=== PATIENT | female | born 1950 | race Caucasian/White ===

== ENCOUNTER → 2016-09-21 | Outpatient (CLI) | payer BC ==
[~2016-09-21] MED LIST: ACET-24 PO; ANTIBIOTIC; ASPEC325 PO; ASPI81TA28 PO; ATOR-22 PO; CHOL1TAB12 PO; CHOL1TAB76 PO; CYAN100020 PO; FRRG PO; MORP-157 PO; MULTTAB58 PO; NAPR-1169 PO; OMEG10002 PO; RXC5 PO; TRIATAB3 PO; [UNRECOGNIZED DRUG - OTHER]
[2016-09-21 13:06] LABS: ALT/SGPT 29 U/L (12-78); BLOOD UREA NITROGEN 13 mg/dl (7-18); BUN/CREATININE RATIO 19.8 (10-20); CALCIUM 9.1 mg/dl (8.5-10.1); CARBON DIOXIDE 29 mmol/L (21-32); CHLORIDE 104 mmol/L (98-107); CHOLESTEROL 141 mg/dl (0-200); CREATININE 0.66 mg/dl (0.60-1.20); GLUCOSE 109 mg/dl (70-99); SODIUM 142 mmol/L (136-145)
[2016-09-21 13:12] LABS: ALB/GLOB RATIO 1.2 (0.9-2); ALKALINE PHOSPHATASE 83 U/L (45-117); AST/SGOT 15 U/L (15-37); CHOLESTEROL/HDL RATIO 2.8; HDL CHOLESTEROL 51 mg/dl; LDL CHOLESTEROL CALCULATED 59 mg/dl; TRIGLYCERIDES 156 mg/dl (0-150); VERY LOW DENSITY LIPOPROT CALC 31 mg/dl
[2016-09-21 13:32] LABS: ESTIMATED AVERAGE GLUCOSE 123 mg/dl; HA1C FLAG Normal (Normal)
== END | disposition home or self-care (01) ==
LOC: C.LABBFT 08:51
PROVIDERS: ATTEND Family Medicine
DX: I10 Essential (primary) hypertension (principal); E78.2 Mixed hyperlipidemia; R73.01 Impaired fasting glucose

== ENCOUNTER 2017-01-18 06:29 | Inpatient (IN) | payer OTHER ==
[2016-12-13 15:08] VITALS: BMI 47.0
--- NOTE | 2016-12-13 15:49 | PAT Medication Instructions ---
Service Date December 13, 2016. Current Home Medication List Aspirin (Aspirin Ec), 81 MG PO QAM Atorvastatin (Lipitor), 20 MG PO QPM Cholecalciferol (D 1999), 1 TAB PO QAM Cyanocobalamin (Vitamin B12), 3,000 MCG PO QAM Multiple Vitamin (Multivitamin), 1 TAB PO QAM Naproxen (Naprosyn), 500 MG PO QAM [place]-3 Fatty Acids (Fish Oil), 3,000 MG PO QAM Triamterene/Hctz (Triamterene/Hctz 37.5-25MG), 1 TAB PO QAM [[antibiotic ] Medication Instructions For Your Scheduled Surgery Antibiotic (takes prior to dental procedures since having knee replacement) - Hold the following medications 10 days prior to surgery: [place]-3 Fatty Acids (Fish Oil), 3,000 MG PO QAM Aspirin (Aspirin Ec), 81 MG PO QAM Naproxen (Naprosyn), 500 MG PO QAM - Hold the following medications the morning of surgery: Triamterene/Hctz (Triamterene/Hctz 37.5-25MG), 1 TAB PO QAM Cholecalciferol (D 1999), 1 TAB PO QAM Cyanocobalamin (Vitamin B12), 3,000 MCG PO QAM Multiple Vitamin (Multivitamin), 1 TAB PO QAM - Take the following medications as scheduled the night before surgery: Atorvastatin (Lipitor), 20 MG PO QPM If you have any questions please call us at [phone] or [phone] ( [place]) or [phone]
[2016-12-13 16:32] LABS: BASO % 0.2 %; BASO ABS # 0.01 K/uL (0-0.2); COMPLETE YES; EOS % 3.3 %; HEMATOCRIT 38.9 % (37-47); IG% 0.2 %; LYMPH % 22.4 %; LYMPH ABS # 0.96 K/uL (1.2-3.4); MEAN CELL VOLUME 85.5 fL (80-100); MEAN CORPUSCULAR HEMOGLOBIN 27.7 pg (25-34); MEAN CORPUSCULAR HGB CONC 32.4 g/dl (32-36); MEAN PLATELET VOLUME 12.1 fL (7.4-10.4); NEUT % 62.9 %; PLATELET COUNT 180 K/uL (130-400); RED BLOOD COUNT 4.55 M/uL (4.2-5.4); WHITE BLOOD COUNT 4.29 K/uL (4.8-10.8)
[2016-12-13 16:34] LABS: PARTIAL THROMBOPLASTIN RATIO 1.1; PROTHROMBIN TIME (PATIENT) 10.5 SECONDS (9.0-12.0)
[2016-12-13 16:42] LABS: C-REACTIVE PROTEIN 0.52 mg/dl (0-0.29); CREATININE 0.65 mg/dl (0.60-1.20); POTASSIUM 4.1 mmol/L (3.5-5.1)
--- NOTE | 2016-12-13 16:54 | DIAGNOSTIC IMAGING REPORT ---
CHEST 2 VIEWS ROUTINE CLINICAL HISTORY: PAT preoperative evaluation COMPARISON STUDY: 08/27/2014 FINDINGS: Mild stable cardia megaly. Lungs are clear. Mild chronic elevation right hemidiaphragm. Costophrenic angles are sharp. IMPRESSION: Mild stable cardiomegaly. Otherwise negative study Electronically signed by: Silas Mcghee M.D. 12/13/2016 4:53 PM Dictated Date/Time: 12/13/2016 4:52 PM
[2016-12-13 16:57] LABS: CALCIUM 10.5 mg/dl (8.5-10.1)
--- NOTE | 2017-01-13 19:04 | HISTORY & PHYSICAL EXAMINATION ---
DATE OF ADMISSION: 01/18/2017 CHIEF COMPLAINT: Right knee pain, discomfort and stiffness. HISTORY OF PRESENT ILLNESS: This 65-year-old female who is well known to me from a previous left knee replacement done in September 2014. She has done well on this side. Over the years she has developed increased pain and discomfort in her right knee. She has been through extensive conservative treatment including injections which provided very temporary relief. The last shot only helped her for about a day and a half. Pain has become more disabling. Hurts her all the time. The more she walks, the more it hurts. She would like to proceed with surgical treatment. Of note, the patient does report a NICKEL ALLERGY and we used the Huff & Nephew knee as a result. PAST MEDICAL HISTORY: Include: 1. Mitral valve prolapse. 2. Hypertension. 3. Elevated cholesterol. 4. Obesity with a BMI of 46.8. 5. Arthritis. PAST SURGICAL HISTORY: Include: 1. Left knee replacement done on 09/27/2014. 2. Right knee scope. 3. Right foot bunionectomy. 4. [place] teeth surgery. ALLERGIES: NICKEL. CURRENT MEDICINES: Include 1. Naproxen 500 mg a day. 2. Atorvastatin 20 mg. 3. Maxzide. 4. Enteric-coated aspirin 81 mg a day. 5. [place] fish oil. 4. Vitamin D3. 5. Vitamin B12. SOCIAL HISTORY: A 65-year-old female. Does not smoke. FAMILY HISTORY: Noncontributory. REVIEW OF SYSTEMS: Negative for diabetes, neurologic problems, vascular problems, bleeding disorders. Does report this NICKEL ALLERGY. PHYSICAL EXAMINATION: GENERAL: Reveals a pleasant, middle-aged female. Looks to be in pretty good health. HEENT: Benign. NECK: Supple. No lymphadenopathy. LUNGS: Clear to auscultation. HEART: Regular rate and rhythm. ABDOMEN: Soft, nontender, nondistended. EXTREMITIES: Grossly neurovascularly intact except as follows: Examination of the right knee reveals the patient ambulates independently. She has got fairly neutral alignment to her knee. Slight flexion contracture about 10 degrees. She can flex to about 120. No instability. She is tender over the medial and lateral joint lines. X-RAYS: X-rays of the right knee reviewed. It shows advanced right knee tricompartmental DJD. She has got pretty significant osteophytes, particularly posteriorly. She still has some joint space remaining, but has tricompartment disease. A little bit of tibial femoral subluxation. ASSESSMENT: A 65-year-old female 2 years out from left knee replacement, doing well with advanced right knee degenerative joint disease. She still does have some cartilage space remaining, but pretty significant osteophyte formation, degenerative changes in all 3 compartments. She has failed conservative treatment and would like to proceed with right knee replacement. She does have a NICKEL ALLERGY, so we will use the Huff & Nephew zirconium knee. PLAN: We are going to take her to the operating room and do a total knee replacement. We will use a Huff & Nephew zirconium total knee arthroplasty. The risks and benefits for this procedure were explained to the patient including but not limited to DVT, PE, , infection, neurological injury, neurovascular injury, bleeding problem, pain, limited range of motion, incomplete relief of symptoms, etc. The patient understands and desires to proceed. Informed consent was obtained. We did talk about holding the naproxen 10 days preop. She is hoping to be discharged to home. She will likely use home health of some sort. We will use a Huff & Nephew knee. I will see her back 2 weeks postop.
[~2017-01-18] VITALS: Ht 162.6 cm; Wt 123.8 kg
[2017-01-18] VITALS (9 sets, daily range): BP systolic 120–156; BP diastolic 69–86; PULSE 55–92; TEMP 36.6–36.8; O2SAT 92–100; Ht 162.6 cm; Wt 123.8 kg
[~2017-01-18 06:29] MED LIST changes: -ACET-24 PO; +ACETAMINOPHEN 500 MG TAB PO SCH; -ASPEC325 PO; +BUPIVACAINE LIPOSOME 266 MG, BUPIVACAINE/EPINEPHRINE INJ 50 ML, SODIUM CHLORIDE 0.9% PF... INFIL SCH; +CEFAZOLIN 3000 MG/65 ML D5W 65 ML IV SCH; -CHOL1TAB12 PO; +FAMOTIDINE 20 MG TAB PO SCH; -FRRG PO; +GABAPENTIN 300 MG CAP PO SCH; +LACTATED RINGER'S 1000ML IV SCH; +LACTATED RINGER'S 500 ML IV SCH; +METOCLOPRAMIDE HCL 10 MG TAB PO SCH; -MORP-157 PO; -RXC5 PO; +SCOPOLAMINE 1.5 MG TDSY TD SCH; +TRANEXAMIC ACID INJ 1,000 MG in SODIUM CHLORIDE 0.9% 100ML 100 ML IV SCH; -[UNRECOGNIZED DRUG - OTHER]
[2017-01-18] MEDS ORDERED: BUPIVACAINE 0.5 % 5 MG/1 ML PF 10ML VIAL ONE (06:37)
[2017-01-18] MEDS ORDERED: BUPIVACAINE 0.25% 30 ML VIAL ONE (06:38)
--- NOTE | 2017-01-18 06:49 | History & Physical Bridge Note ---
H&P Re-Evaluation Bridge Note: I have examined the patient, reviewed the History & Physical and in the interval since the performance of the History & Physical I have noted the following changes of clinical significance: No changes noted
[2017-01-18] MEDS ORDERED: MIDAZOLAM HCL 1 MG/ML 2ML VIAL ONE ×2 (07:32)
[2017-01-18] MEDS ORDERED: BACITRACIN 50000 UNIT VIAL ONE (09:32)
[2017-01-18] MEDS ORDERED: BUPIVACAINE/EPINEPHRINE 0.25% 1:200,000 30 ML VIAL ONE (09:32)
[2017-01-18] MEDS ORDERED: SODIUM CHLORIDE 0.9% PF 50 ML VIAL ONE (09:32)
[2017-01-18] MEDS ORDERED: BUPIVACAINE LIPOSOME 1/3% 266 MG/20 ML VIAL INFIL ONE (09:33)
[2017-01-18] MEDS ORDERED: PROPOFOL IV EMULSION 10 MG/ML 20 ML VIAL IV ONE (10:02)
[2017-01-18] MEDS ORDERED: PHENYLEPHRINE 100MCG/ML 5ML SYR IV PRN (10:45)
[2017-01-18] MEDS ORDERED: ONDANSETRON INJ 2 MG/ML 2 ML VIAL IV PRN ×2 (10:45→11:45)
[2017-01-18] MEDS ORDERED: ATROPINE SULFATE 0.1 MG/ML 5ML SYR IV PRN (10:45)
[2017-01-18] MEDS ORDERED: KETOROLAC TROMETHAMINE 30 MG/ML VIAL IV. PRN (10:45)
[2017-01-18] MEDS ORDERED: HYDROmorphone INJ 2 MG/ML SYR/VIAL IV PRN (10:45)
[2017-01-18] MEDS ORDERED: EpHEDrine SULFATE INJ 50 MG/ML AMP IV PRN (10:45)
--- NOTE | 2017-01-18 11:36 | [facility] Post Operative Brief Note ---
Immediate Operative Summary Operative Date Jan 18, 2017. Pre-Operative Diagnosis Right knee degenerative joint disease Post-Operative Diagnosis Right knee degenerative joint disease Procedure(s) Performed Right total knee arthroplasty Surgeon Dr. Tad Hall Falafel Cart Cook Surgeon(s) Kosta Montana PA-C Estimated Blood Loss 50ML Findings Right Knee DJD Fluids (cc crystalloids) 1600 cc Specimens A. Right knee bone and tissue Drains None Anesthesia Spinal Complication(s) None Disposition Recovery Room / PACU
[2017-01-18] MEDS ORDERED: METOCLOPRAMIDE HCL INJ 5 MG/ML 2 ML VIAL IV PRN (11:45)
[2017-01-18] MEDS ORDERED: MAGNESIUM HYDROXIDE SUSP 30 ML UDC PO PRN (11:45)
[2017-01-18] MEDS ORDERED: BISACODYL 10 MG SUPP PR PRN (11:45)
[2017-01-18] MEDS ORDERED: ALUMINUM/MAGNESIUM/SIMETH (MAALOX MAX) 30 ML UDC PO PRN (11:45)
[2017-01-18] MEDS ORDERED: ZOLPIDEM TARTRATE 5 MG TAB PO PRN (11:45)
[2017-01-18] MEDS ORDERED: HYDROmorphone INJ 1 MG/ML SYR IV PRN (11:45)
[2017-01-18] MEDS ORDERED: SILVER SULFADIAZINE 1% CR 50 GM JAR EXT PRN (11:45)
--- NOTE | 2017-01-18 12:20 | OPERATIVE REPORT ---
DATE OF OPERATION: 01/18/2017 PREOPERATIVE DIAGNOSIS: Right knee degenerative joint disease. POSTOPERATIVE DIAGNOSIS: Same. PROCEDURE PERFORMED: Right cemented posterior stabilized total knee arthroplasty. SURGEON: Tad Hall M.D. NUCLEAR REACTOR ENGINEER: Kosta Montana PA-C. COMPLICATIONS: None. ESTIMATED BLOOD LOSS: 50 mL. FLUID REPLACEMENT: 1600 mL crystalloid fluid replacement. ANESTHESIA: Spinal with adductor canal block. DRAINS: None. SPECIMENS: Right knee sent for pathology. TOURNIQUET TIME: 62 minutes at 300 mmHg. OPERATIVE INDICATIONS: The patient is a 66-year-old female who has had a long history of knee problems. She underwent a left knee replacement about 2 years ago and has done well from this. Over the years she developed increased pain and discomfort in her right knee. She has been through extensive conservative treatment. The last shot helped her for about a day or two. X-rays revealed advanced DJD. The patient has apparent nickel allergy and we elected to use the Huff & Nephew Journey II zirconium total knee arthroplasty as a result. She elected to proceed with total knee arthroplasty. OPERATIVE FINDINGS: Operative findings revealed advanced right knee DJD. She had grade 4 [id number] disease in all 3 compartments, most severe in the medial and patellofemoral compartments. She had more focal changes in the lateral side. Moderate size joint effusion. Very stiff knee with about a 10 degree flexion contracture and flexion only to about 100 degrees. OPERATIVE IMPLANTS: Operative implants consisted of: 1. Huff & Nephew Journey II, size 5 posterior stabilized zirconium femoral component. 2. Huff & Nephew Journey II, size 3 tibial tray. 3. A 12 mm posterior stabilized polyethylene insert. 4. A 32 x 9 all poly patella. OPERATIVE PROCEDURE: The patient taken to the operating room, identified and placed on the operating table in supine position. All contact areas were appropriately padded. IV antibiotics were provided by anesthesia team. A spinal anesthetic and adductor canal block had been provided in the holding area. A Nelson catheter was placed in sterile fashion. Right thigh tourniquet was then placed. The right lower extremity was then prepped and draped in usual sterile fashion. The right leg was elevated and exsanguinated with Esmarch and tourniquet was placed at 300 mmHg. An anterior approach to the right knee was then performed through a longitudinal incision centered over the patella. Sharp dissection was carried down through the subcutaneous tissues down to the level of the extensor mechanism. A medial parapatellar arthrotomy incision was made. Some subperiosteal dissection was carried out medially. The fat pad was resected from beneath the patellar tendon. Lateral patellofemoral ligament was released. The patella was everted and knee was flexed. The osteophytes were taken off the distal femur. The ACL and PCL were then released from the distal femur and the tibia subluxated anteriorly. The external tibial alignment jig was then placed in the anterior face of the tibia and adjusted 8 mm medially. Proximal tibial cut was made to remove about 2-3 mm of bone from the most deficient aspect of the medial tibial plateau. I did take a little bit larger cut than usual due to her tight knee and flexion contracture. The tibia was then sized to a size 3. Attention was then drawn to the femur. The distal femur was entered with a sharp drill bit. Intramedullary canal was suctioned. A right 5 degree valgus cutting guide was placed. Distal femoral cutting block was pinned in place. Distal femoral cut was made to take an additional 2 mm of bone off the distal femur. The femur was then sized to a size 5. We did downsize this almost an entire size. The AP cutting block was pinned parallel to the epicondylar axis, which was 4 degrees of external rotation. The anterior cut, anterior chamfer, posterior cut, posterior chamfer cuts were made. Box cutting guide was placed and adjusted slightly lateral and the box cut was made. The knee was flexed. The AP cutting block was pinned parallel to the epicondylar axis. The anterior cut, anterior cord cut, posterior cut, posterior chamfer cut and anterior chamfer cuts were then made. The knee was then flexed. The remnants of the medial and lateral menisci were excised. The osteophytes were taken off the posterior aspect of the femur. I then did place the femoral component. The box cutting guide was placed and the box cut was made. The trochlear component was placed. The attention then drawn back to the tibia. The tibial tray was pinned in maximum external rotation. The punch was used to create defect in proximal tibia for the tibial tray. The knee was then trialed and the 12 mm insert fit most appropriately. Attention was then drawn to the patella. The patella was cleaned of all soft tissues. Patella thickness measured 22 mm and was cut down to 13. It was sized to a size 32 patella. Lug holes were drilled for a 32 patella. The lateral osteophyte was removed. Patella button was placed. Knee was taken through range of motion and patella tracked nicely with no thumbs test. Attention was then drawn toward placement of the permanent components. All trial components were removed. A bone plug was placed in the distal femur to limit blood loss. A double batch of [place] G cement was mixed. A right size 5 stabilized femoral component, size 3 tibial tray, a 12 mm posterior stabilized polyethylene insert, and a 32 x 9 all poly patella were then cemented in place. Knee was brought out into full extension until cement hardened. A final cement check was then performed. Pericapsular tissues were injected with a total of 100 mL of a combination of 20 mL of Exparel, 30 mL of normal saline, 50 mL of 0.25% Marcaine with epinephrine. The patient did receive 1 gram of tranexamic acid. The tourniquet was then let down for final tourniquet time of 62 minutes. Hemostasis was assured with use of electrocautery. The extensor mechanism was then closed with a combination of #1 PDS suture and #1 Vicryl suture in a [id number] fashion. Extensor mechanism was checked and found to be intact. The subcutaneous tissues were then closed with 2-0 Dexon suture in buried interrupted fashion. Skin was closed skin whitney. Leg was then cleaned and dried and a sterile dressing of Xeroform, 4 x 4, sterile cast padding and Jimmy bandage were applied. The patient then transferred to the recovery room in stable condition. The patient tolerated the procedure well with no complications. All needle and sponge counts were correct at the end of the operation. I attest to the content of the Intraoperative Record and any orders documented therein. Any exceptions are noted below. MARCELLUSD
--- NOTE | 2017-01-18 12:21 | DIAGNOSTIC IMAGING REPORT ---
RIGHT KNEE 1 OR 2 VIEWS ROUTINE CLINICAL HISTORY: AP/LATERAL IN PACU RIGHT KNEE Right joint replacement COMPARISON: None. DISCUSSION: Total right knee prosthetic. Good contact between prosthesis and underlying bone. Expected soft tissue postoperative change. IMPRESSION: Anatomic alignment status post total right knee replacement. Electronically signed by: Silas Mcghee M.D. 01/18/2017 12:20 PM Dictated Date/Time: 01/18/2017 12:19 PM
--- NOTE | 2017-01-18 12:53 | Anesthesiology Progress Note ---
Anesthesia Post Op Note Date & Time Jan 18, 2017 at 12:54 Vital Signs Pain Intensity: 0.0 Vital Signs Past 12 Hours Date Time Temp Pulse Resp B/P (MAP) Pulse Ox O2 Delivery O2 Flow Rate FiO2 01/18/17 12:46 98 Nasal Cannula 2.0 01/18/17 12:43 36.7 63 16 138/79 (98) 98 2.0 01/18/17 12:32 62 17 92 01/18/17 12:32 63 17 01/18/17 12:31 140/69 01/18/17 12:27 61 21 97 01/18/17 12:27 61 21 01/18/17 12:26 127/62 01/18/17 12:22 61 20 01/18/17 12:22 60 20 94 01/18/17 12:21 144/63 01/18/17 12:20 36.5 61 20 144/63 (74) 95 Nasal Cannula 2 01/18/17 12:17 62 22 01/18/17 12:17 62 22 96 01/18/17 12:16 137/66 01/18/17 12:12 60 20 01/18/17 12:12 59 20 95 01/18/17 12:11 124/65 01/18/17 12:07 62 21 95 01/18/17 12:07 62 21 01/18/17 12:06 138/65 01/18/17 12:02 64 23 01/18/17 12:02 63 23 95 01/18/17 12:01 142/58 01/18/17 11:57 59 16 97 01/18/17 11:57 60 16 01/18/17 11:56 132/60 01/18/17 11:52 63 20 01/18/17 11:52 63 20 98 01/18/17 11:51 138/52 01/18/17 11:47 69 18 99 01/18/17 11:47 68 18 01/18/17 11:46 145/58 01/18/17 11:43 124/64 01/18/17 11:42 36.8 68 18 124/64 99 Nasal Cannula 2 01/18/17 07:07 36.7 78 18 156/78 94 Room Air Notes Mental Status: alert / awake / arousable, participated in evaluation Pt Amnestic to Procedure: Yes Nausea / Vomiting: adequately controlled Pain: adequately controlled Airway Patency, RR, SpO2: stable & adequate BP & HR: stable & adequate Hydration State: stable & adequate Anesthetic Complications: no major complications apparent
[2017-01-18] MEDS: D5W AND 1/2NSS + 20MEQ KCL 1,000 ML IV SCH ×2 (13:24→21:35)
[2017-01-18] MEDS: ACETAMINOPHEN 500 MG TAB PO SCH ×2 (13:25→21:46)
[2017-01-18] MEDS: KETOROLAC TROMETHAMINE 30 MG/ML VIAL IV. SCH ×2 (13:26→19:54)
[2017-01-18] MEDS: OXYCODONE HCL IR 5 MG TAB (IMMEDIATE RELEASE) PO PRN ×2 (15:11→19:52)
[2017-01-18] MEDS: CHECK SCOPOLAMINE PATCH PLACEMENT SCH ×2 (15:11→23:08)
[2017-01-18] MEDS: FERROUS GLUCONATE 324 MG TAB PO SCH (17:45)
[2017-01-18] MEDS ORDERED: TRANEXAMIC ACID INJ 1,000 MG in SODIUM CHLORIDE 0.9% 100ML 100 ML IV ONE (18:00)
[2017-01-18] MEDS: CEFAZOLIN IV 2,000 MG in DEXTROSE 5% 50ML 50 ML IV SCH (18:16)
--- NOTE | 2017-01-18 18:22 | PROGRESS NOTE ---
DATE: 01/18/2017 SUBJECTIVE: A 66-year-old white female, postop from a right total knee replacement. She is doing well. Pain is controlled. Denies any chest pain or shortness of breath. Not feeling dizzy or lightheaded. OBJECTIVE: VITAL SIGNS: Temperature 36.8. Vital signs stable. PHYSICAL EXAMINATION: GENERAL: Physical examination reveals she is a pleasant, middle-aged female. She is lying in bed, looks pretty comfortable. EXTREMITIES: Examination of the right leg reveals the leg to be well aligned. She can dorsiflex and plantarflex her foot appropriately. She is neurologically intact. X-RAYS: X-rays of the right knee from recovery room were reviewed. It shows a right cemented posterior stabilized total knee arthroplasty. Components look to be in good position. No signs of problems. It is a little bit of rotated film. ASSESSMENT: A 66-year-old white female, postop from a right knee replacement, doing well. Pain is controlled. She is neurologically intact. PLAN: 1. DVT prophylaxis including thigh-high TEDs, SCDs and aspirin twice a day. 2. PT/OT. Weightbearing as tolerated. Right total knee protocol. 3. Pain control, doing pretty well with current pain regimen. 4. IV antibiotics x24 hours. 5. Disposition. Plan will be to discharge her to home. I believe she is going to do home health versus outpatient therapy.
[2017-01-18] MEDS: DOCUSATE SODIUM 100 MG CAP PO SCH (21:34)
[2017-01-18] MEDS: TAPENTADOL ER 50 MG TABCR PO SCH (21:34)
[2017-01-18] MEDS: ATORVASTATIN 20 MG TAB PO SCH (21:34)
[2017-01-18] MEDS: ASPIRIN 325 MG ECTAB PO SCH (21:34)
[2017-01-18] MEDS: SENNA 8.6 MG TAB PO SCH (21:46)
[2017-01-19] MEDS: CEFAZOLIN IV 2,000 MG in DEXTROSE 5% 50ML 50 ML IV SCH (02:00)
[2017-01-19] MEDS: KETOROLAC TROMETHAMINE 30 MG/ML VIAL IV. SCH ×4 (02:00→19:30)
[2017-01-19 03:18] VITALS: BP 134/84; PULSE 65; TEMP 36.6; O2SAT 96
[2017-01-19 05:47] LABS: HEMATOCRIT 32.9 % (37-47); MEAN CELL VOLUME 83.9 fL (80-100); MEAN CORPUSCULAR HEMOGLOBIN 26.5 pg (25-34); MEAN CORPUSCULAR HGB CONC 31.6 g/dl (32-36); MEAN PLATELET VOLUME 11.4 fL (7.4-10.4); PLATELET COUNT 155 K/uL (130-400); RED BLOOD COUNT 3.92 M/uL (4.2-5.4); WHITE BLOOD COUNT 4.91 K/uL (4.8-10.8)
[2017-01-19] MEDS: D5W AND 1/2NSS + 20MEQ KCL 1,000 ML IV SCH (05:54)
[2017-01-19] MEDS: ACETAMINOPHEN 500 MG TAB PO SCH ×3 (05:54→21:49)
[2017-01-19 06:19] LABS: BUN/CREATININE RATIO 15.8 (10-20); CALCIUM 8.1 mg/dl (8.5-10.1); CREATININE 0.69 mg/dl (0.60-1.20); POTASSIUM 4.3 mmol/L (3.5-5.1)
[2017-01-19] MEDS: CHECK SCOPOLAMINE PATCH PLACEMENT SCH ×2 (07:31→15:11)
[2017-01-19] MEDS: FERROUS GLUCONATE 324 MG TAB PO SCH ×3 (07:31→18:25)
[2017-01-19 07:39] VITALS: BP 140/78; PULSE 64; TEMP 36.7; O2SAT 93
[2017-01-19 07:53] VITALS: O2SAT 93
--- NOTE | 2017-01-19 08:08 | Anesthesiology Progress Note ---
Anesthesia Post Op Note Date & Time Jan 19, 2017 at 08:07 Vital Signs Pain Intensity: 6.0 Vital Signs Past 12 Hours Date Time Temp Pulse Resp B/P (MAP) Pulse Ox O2 Delivery O2 Flow Rate FiO2 01/19/17 07:53 93 Room Air 01/19/17 07:39 36.7 64 16 140/78 (98) 93 Room Air 01/19/17 07:30 Room Air 01/19/17 03:18 36.6 65 18 134/84 (101) 96 Room Air 01/18/17 23:09 36.7 77 19 120/71 (87) 96 Room Air Notes Mental Status: alert / awake / arousable, participated in evaluation Pt Amnestic to Procedure: Yes Nausea / Vomiting: adequately controlled Pain: adequately controlled Airway Patency, RR, SpO2: stable & adequate BP & HR: stable & adequate Hydration State: stable & adequate Neuraxial Anesthesia: was administered, sensory block resolved Anesthetic Complications: no major complications apparent
[2017-01-19] MEDS ORDERED: MULTIVITAMIN TAB PO SCH (09:00)
[2017-01-19] MEDS: TAPENTADOL ER 50 MG TABCR PO SCH ×2 (09:03→20:32)
[2017-01-19] MEDS: PANTOprazole SOD 40 MG TAB PO SCH (09:04)
[2017-01-19] MEDS: CHOLECALCIFEROL 1000 INTER.UNIT TAB PO SCH (09:04)
[2017-01-19] MEDS: DOCUSATE SODIUM 100 MG CAP PO SCH ×2 (09:04→20:31)
[2017-01-19] MEDS: MULTIVITAMIN TAB PO SCH (09:04)
[2017-01-19] MEDS: ASPIRIN 325 MG ECTAB PO SCH ×2 (09:04→20:31)
[2017-01-19] MEDS: TRIAMTERENE/HCTZ 37.5/25MG TAB PO SCH (09:04)
[2017-01-19] MEDS: CYANOCOBALAMIN 500 MCG TAB (VIT B-12) PO SCH (09:05)
[2017-01-19 11:53] VITALS: BP 138/82; PULSE 62; TEMP 36.9; O2SAT 98
[2017-01-19] MEDS: OXYCODONE HCL IR 5 MG TAB (IMMEDIATE RELEASE) PO PRN (11:58)
[2017-01-19] MEDS ORDERED: FRRG PO (12:00)
[2017-01-19] MEDS ORDERED: RXC5 PO (12:00)
[2017-01-19] MEDS ORDERED: MORP-157 PO (12:00)
[2017-01-19] MEDS ORDERED: ACET-24 PO (12:00)
[2017-01-19] MEDS ORDERED: ASPEC325 PO (12:00)
--- NOTE | 2017-01-19 12:01 | Discharge Instructions ---
Discharge Instructions Date of Service Jan 19, 2017. Admission Reason for Admission: Right Knee Degenerative Joint Disease Discharge Discharge Diagnosis / Problem: Right Knee Replacement Discharge Goals Goal(s): Decrease discomfort, Improve function, Increase independence, Improve disease control, Therapeutic intervention Activity Recommendations Activity Limitations: per Instructions/Follow-up section Weightbearing Status: Right weightbearing . Instructions / Follow-Up Instructions / Follow-Up ACTIVITY RECOMMENDATIONS: Physical Therapy: * You will go to physical therapy three times each week for four to six weeks after your surgery in order to regain your knee range of motion and to retrain your knee to work properly. * It is just as important to make sure you are getting your knee perfectly straight as it is to regain your knee bend. * Taking a pain pill an hour before therapy can help you have a more productive and comfortable therapy session. Home Exercise: * You were shown a series of exercises (heel props, heel slides, etc.) in the hospital. Do these exercises three to four times each day including the exercises you were shown in physical therapy. Walking: * Get up and walk several times each day. For the first four weeks, try not to stand or walk for more than one hour at a time. If you do stand or walk for more than one hour, you will not hurt anything, but your knee and leg will likely swell. * As you feel comfortable, you may change from the walker or crutches to a cane and then to independent walking. MEDICATIONS: New Medicine: * You will likely be taking one or more of these medications: 1. MS Contin - A long-acting pain medication. Take 1 tablet twice a day for the first ten days to decrease your baseline level of pain. 2. Oxycodone - A quick and shorter-acting pain medication. Take one to two tablets every four to six hours to lessen your pain. 3. Iron Sulfate - Take three times each day for the month after surgery to help you replace the blood lost during surgery. 4. Aspirin - Thins your blood to lessen the chance of forming a blood clot. * The most common side effects of pain medicine and iron are nausea and constipation. If nausea or constipation is too much of a problem or if you have any questions about your new medicines or doses, call [facility] at . We will try to help you manage these issues. VERY IMPORTANT TO READ AND REVIEW" Pain: * The immediate post-operative period after knee replacement surgery is often quite painful. * You are given a prescription for pain medicine. You should take it, as directed, when you need it, especially before physical therapy and before going to bed. Pain that interferes with sleep is very common and can last several months. * You will likely need pain medicine for the first four to six weeks. It will not stop all of the pain. The pain will lessen and as you feel better, you may change to milder pain medicine such as Tylenol. * The most common side effects of pain medicine are nausea and constipation, so don't take more than you need. SPECIAL CARE INSTRUCTIONS: TEDs/Elastic Stockings: * The white elastic stockings help limit swelling and prevent blood clots from forming in your legs. The more you wear them, the more they work. * Wear them for six weeks after knee replacement surgery and four weeks after partial knee replacement. Prevention of Infection: * Take antibiotics one hour before any dental cleaning, dental work, urological procedure, gastrointestinal procedure or any invasive surgery in order to prevent your new joint from getting infected. * You may get the antibiotics from the doctor performing the procedure or you may call our office at before and we will call in a prescription to the pharmacy of your choice. Things to Watch For: * Drainage from the incision site that occurs more than one week after your surgery. * Severely increased knee/leg pain or swelling. * Increased redness at the incision site. * Fever above 102 degrees Fahrenheit. * Unusual chest pain or shortness of breath. * Unusual pain or burning with urination. Call [facility] at with any of the above problems or if you have any questions about your medicines or recovery. FOLLOW UP VISIT: Make an appointment to see your doctor for approximately two weeks after surgery for a progress check and staple removal by calling the office at . Current Hospital Diet Patient's current hospital diet: Regular Diet Discharge Diet Recommended Diet: Regular Diet Procedures Procedures Performed: Right total knee arthroplasty Pending Studies Studies pending at discharge: no Medical Emergencies . Who to Call and When: Medical Emergencies: If at any time you feel your situation is an emergency, please call 201 immediately. . Non-Emergent Contact Non-Emergency issues call your: Surgeon . "Provider Documentation" section prepared by Tad Hall. . VTE Core Measure Inpt VTE Proph given/why not?: Other Anticoagulation, T.E.D. Stockings, SCD's
[2017-01-19 15:34] VITALS: BP 152/84; PULSE 70; TEMP 37; O2SAT 92
[2017-01-19] MEDS: SENNA 8.6 MG TAB PO SCH (20:31)
[2017-01-19] MEDS: ATORVASTATIN 20 MG TAB PO SCH (20:31)
[2017-01-19 23:15] VITALS: BP 137/79; PULSE 73; TEMP 36.9; O2SAT 92
[2017-01-20] MEDS: CHECK SCOPOLAMINE PATCH PLACEMENT SCH (00:21)
[2017-01-20] MEDS: OXYCODONE HCL IR 5 MG TAB (IMMEDIATE RELEASE) PO PRN ×2 (00:25→05:48)
[2017-01-20] MEDS: KETOROLAC TROMETHAMINE 30 MG/ML VIAL IV. SCH ×2 (02:21→08:09)
[2017-01-20] MEDS: ACETAMINOPHEN 500 MG TAB PO SCH (05:48)
[2017-01-20 07:33] VITALS: O2SAT 92
--- NOTE | 2017-01-20 07:47 | PROGRESS NOTE ---
DATE: 01/20/2017 DATE: 01/20/2017. SUBJECTIVE: A 66-year-old white female postop day 2 from right knee replacement. She is doing better today. Pain has improved. The pain medicine is doing pretty well. No chest pain or shortness of breath. Not feeling dizzy or lightheaded. OBJECTIVE: VITAL SIGNS: Temperature is 36.9. Vital signs stable. PHYSICAL EXAMINATION: GENERAL: Reveals a healthy pleasant, middle-aged female. She is lying in bed, looks pretty comfortable. EXTREMITIES: Examination of the right leg reveals the leg to be well aligned. Dressing is clean, dry and intact. No significant drainage. She can dorsiflex and plantarflex her foot appropriately. She is neurologically intact. ASSESSMENT: A 66-year-old white female postop day 2 from right knee replacement, doing well. Pain is controlled. PLAN: 1. DVT prophylaxis including thigh-high TEDs, SCDs, and aspirin twice a day. 2. PT/OT, weightbear as tolerated. Right total knee protocol. 3. Pain control. Doing pretty well with current pain regimen. 4. Disposition. Plan to discharge to home. She is going to do outpatient therapy.
[2017-01-20 07:55] VITALS: BP 138/64; PULSE 66; TEMP 36.8; O2SAT 92
[2017-01-20] MEDS: FERROUS GLUCONATE 324 MG TAB PO SCH (08:08)
[2017-01-20] MEDS: PANTOprazole SOD 40 MG TAB PO SCH (09:19)
[2017-01-20] MEDS: ASPIRIN 325 MG ECTAB PO SCH (09:20)
[2017-01-20] MEDS: MULTIVITAMIN TAB PO SCH (09:20)
[2017-01-20] MEDS: CYANOCOBALAMIN 500 MCG TAB (VIT B-12) PO SCH (09:20)
[2017-01-20] MEDS: TRIAMTERENE/HCTZ 37.5/25MG TAB PO SCH (09:20)
[2017-01-20] MEDS: DOCUSATE SODIUM 100 MG CAP PO SCH (09:20)
[2017-01-20] MEDS: CHOLECALCIFEROL 1000 INTER.UNIT TAB PO SCH (09:21)
[2017-01-20] MEDS: TAPENTADOL ER 50 MG TABCR PO SCH (09:27)
[2017-01-20 11:09] VITALS: BP 138/64; PULSE 66; TEMP 36.8; O2SAT 92
--- NOTE | 2017-01-27 18:02 | DISCHARGE SUMMARY ---
ADMITTING PHYSICIAN AND SURGEON: Dr. Hall. ADMITTING DIAGNOSIS: Right knee degenerative joint disease. SURGERY PERFORMED: Right total knee arthroplasty. SECONDARY DIAGNOSES: Mitral valve prolapse, hypertension, elevated cholesterol, obesity, arthritis. CONSULTS: None obtained. HISTORY AND PHYSICAL EXAMINATION: Well documented in the patient's chart. HOSPITAL COURSE: The patient was admitted on 01/18/2017 underwent total knee arthroplasty, tolerated the procedure well. There were no complications. She was transferred to the PACU postoperatively and later to the orthopedic floor for further care. She was given Ancef for antibiotic prophylaxis, KONRAD stockings, SCDs and aspirin for DVT prophylaxis. Hemoglobin, hematocrit and vital signs were monitored during her hospital stay and remained stable. She developed some mild postoperative anemia with a hemoglobin down to 10.4, but did not require any blood transfusions. There were no complications. By postoperative day 2, she was tolerating a general diet, pain was controlled with oral pain medicine. She was participating in physical therapy and had no signs or symptoms of deep vein thrombosis. On postop day 2, she was discharged home. She was given printed discharge instructions including new prescriptions for extra strength Tylenol, aspirin 325 mg b.i.d., iron supplement, MS Contin and oxycodone. Continue her home medications with the exception of her home dose of aspirin which was changed. Continue physical therapy, weightbearing as tolerated. KONRAD stockings. Follow up in 10-12 days or sooner if there are any problems or concerns.
== END 2017-01-20 14:15 | disposition home or self-care (01) | DRG 470 ==
LOC: C.ACU 06:29 → C.3E 06:40 → ENRESERV 12:09
PROVIDERS: ADMIT Orthopaedic Surgery Sports Medicine; ATTEND Orthopaedic Surgery Sports Medicine
PROC: 0SRC0J9 Replacement of Right Knee Joint with Synthetic Substitute, Cemented, Open Approach (ICD-10-PCS; principal; 2017-01-18 09:00)
DX: M17.11 Unilateral primary osteoarthritis, right knee (principal); Z68.42 Body mass index [BMI] 45.0-49.9, adult; M25.461 Effusion, right knee; M24.561 Contracture, right knee; I10 Essential (primary) hypertension; E78.00 Pure hypercholesterolemia, unspecified; E66.01 Morbid (severe) obesity due to excess calories; Z96.652 Presence of left artificial knee joint; Z86.79 Personal history of other diseases of the circulatory system; Z91.048 Other nonmedicinal substance allergy status; Z79.1 Long term (current) use of non-steroidal anti-inflammatories (NSAID); Z79.82 Long term (current) use of aspirin; Z79.899 Other long term (current) drug therapy

== ENCOUNTER → 2017-03-14 | Outpatient (CLI) | payer OTHER ==
[~2017-03-14] MED LIST changes: +ACET-24 PO; -ACETAMINOPHEN 500 MG TAB PO SCH; -ANTIBIOTIC; +ASPEC325 PO; -ASPI81TA28 PO; -BUPIVACAINE LIPOSOME 266 MG, BUPIVACAINE/EPINEPHRINE INJ 50 ML, SODIUM CHLORIDE 0.9% PF... INFIL SCH; -CEFAZOLIN 3000 MG/65 ML D5W 65 ML IV SCH; -FAMOTIDINE 20 MG TAB PO SCH; +FRRG PO; -GABAPENTIN 300 MG CAP PO SCH; -LACTATED RINGER'S 1000ML IV SCH; -LACTATED RINGER'S 500 ML IV SCH; -METOCLOPRAMIDE HCL 10 MG TAB PO SCH; +RXC5 PO; -SCOPOLAMINE 1.5 MG TDSY TD SCH; -TRANEXAMIC ACID INJ 1,000 MG in SODIUM CHLORIDE 0.9% 100ML 100 ML IV SCH
[2017-03-14 12:24] LABS: ESTIMATED AVERAGE GLUCOSE 117 mg/dl; HA1C FLAG Normal (Normal)
[2017-03-14 12:35] LABS: BLOOD UREA NITROGEN 14 mg/dl (7-18); BUN/CREATININE RATIO 19.4 (10-20); CALCIUM 9.4 mg/dl (8.5-10.1); CARBON DIOXIDE 31 mmol/L (21-32); CHLORIDE 104 mmol/L (98-107); CHOLESTEROL 147 mg/dl (0-200); CREATININE 0.71 mg/dl (0.60-1.20); GLUCOSE 106 mg/dl (70-99); POTASSIUM 4.2 mmol/L (3.5-5.1); SODIUM 141 mmol/L (136-145); TRIGLYCERIDES 184 mg/dl (0-150); VERY LOW DENSITY LIPOPROT CALC 37 mg/dl
[2017-03-14 12:39] LABS: CHOLESTEROL/HDL RATIO 3.2; HDL CHOLESTEROL 46 mg/dl; LDL CHOLESTEROL CALCULATED 64 mg/dl
== END | disposition home or self-care (01) ==
LOC: C.LABBFT 09:24
PROVIDERS: ATTEND Family Medicine
DX: I10 Essential (primary) hypertension (principal); R73.01 Impaired fasting glucose; E78.2 Mixed hyperlipidemia

== ENCOUNTER → 2017-03-24 | Outpatient (CLI) | payer OTHER ==
--- NOTE | 2017-03-25 14:31 | MAMMOGRAPHY REPORT ---
BILATERAL DIGITAL SCREENING MAMMOGRAM TOMOSYNTHESIS WITH CAD: 03/24/2017 CLINICAL HISTORY: Routine screening. TECHNIQUE: Breast tomosynthesis in addition to standard 2D mammography was performed. Current study was also evaluated with a Computer Aided Detection (CAD) system. COMPARISON: Comparison is made to exams dated: 03/23/2016 mammogram, 04/01/2015 mammogram, 03/20/2015 m ammogram, 03/19/2014 mammogram, 03/08/2013 mammogram, and 03/07/2012 mammogram - [facility]ter. BREAST COMPOSITION: The tissue of both breasts is heterogeneously dense, which may obscure small mas ses. FINDINGS: No suspicious masses, calcifications, or areas of architectural distortion are noted in ei ther breast. There has been no significant interval change compared to prior exams. Multiple small c ircumscribed benign-appearing masses are again noted bilaterally, best seen on the tomosynthesis imag es, which are considered benign given the multiplicity and bilaterality and likely represent cysts. IMPRESSION: ACR BI-RADS CATEGORY 2: BENIGN There is no mammographic evidence of malignancy. A 1 year screening mammogram is recommended. The pa tient will receive written notification of the results. Approximately 10% of breast cancers are not detected with mammography. A negative mammographic report should not delay biopsy if a clinically suggestive mass is present. Argelia Lara M.D. ah/:03/24/2017 15:41:19 Laundry Manager: Anant TALAMANTES)([place]), [facility] letter sent: Normal 1/2 BI-RADS Code: ACR BI-RADS Category 2: Benign
== END | disposition home or self-care (01) ==
LOC: C.MAMM 12:35
PROVIDERS: ATTEND Obstetrics & Gynecology
DX: Z12.31 Encounter for screening mammogram for malignant neoplasm of breast (principal)

== ENCOUNTER → 2017-08-24 | Outpatient (CLI) | payer OTHER ==
[2017-08-24 12:50] LABS: ALBUMIN 3.8 gm/dl (3.4-5.0); ALT/SGPT 37 U/L (12-78); AST/SGOT 17 U/L (15-37); BLOOD UREA NITROGEN 18 mg/dl (7-18); CALCIUM 9.1 mg/dl (8.5-10.1); CARBON DIOXIDE 34 mmol/L (21-32); GLUCOSE 123 mg/dl (70-99); POTASSIUM 4.4 mmol/L (3.5-5.1); SODIUM 140 mmol/L (136-145)
[2017-08-24 12:52] LABS: ALKALINE PHOSPHATASE 90 U/L (45-117); CHOLESTEROL 121 mg/dl (0-200); LDL CHOLESTEROL CALCULATED 45 mg/dl; TOTAL PROTEIN 6.9 gm/dl (6.4-8.2)
[2017-08-24 12:56] LABS: HEMOGLOBIN A1C 6.2 % (4.5-5.6)
== END | disposition home or self-care (01) ==
LOC: C.LABBFT 08:40
PROVIDERS: ATTEND Family Medicine
DX: I10 Essential (primary) hypertension (principal); E78.2 Mixed hyperlipidemia; R73.01 Impaired fasting glucose

== ENCOUNTER → 2017-10-24 | Day surgery (SDC) | payer OTHER ==
[2017-10-06 13:42] VITALS: BMI 45.0
[~2017-10-24] VITALS: Ht 162.6 cm; Wt 121.4 kg
[~2017-10-24] MED LIST changes: -ACET-24 PO; +AMOX500C3 PO; +ASPCH81X PO; -ASPEC325 PO; -FRRG PO; +METR-163 PO; -RXC5 PO; +SODIUM CHLORIDE 0.9% 500ML 500 ML IV ONE
[2017-10-24 14:07] VITALS: Ht 162.6 cm; Wt 121.4 kg
--- NOTE | 2017-10-24 14:42 | Endo History and Physical ---
History & Physical Date of Service: Oct 24, 2017. Chief Complaint: HX OF POLYPS Referring Physician: DR. MOORE ([facility]) History of Present Illness 66 yo CF who presents for screening colonoscopy. Past Medical History Arthritis, High Cholesterol, Hypertension, Other Past Surgical History Hx Cardiac Surgery: No Hx Internal Defibrillator: No Hx Abdominal Surgery: Yes (UTERINE FIBROIDS REMOVED) Hx of Implantable Prosthesis: No Hx Post-Op Nausea and Vomiting: No Hx Cancer Surgery: No Hx Thoracic Surgery: No Hx Orthopedic: Yes (L/RT TKA, RT KNEE ARTHROSCOPY , RT FOOT BUNIONECTOMY) Hx Urinary Tract Surgery: No Family History Polyp Social History Smoking Status: Never Smoker Hx Substance Use: No Hx Alcohol Use: No Allergies Coded Allergies: Nickel (Verified Allergy, Intermediate, HIVES, 10/24/17) Benzonatate (Verified Adverse Reaction, Intermediate, FLUSHED, WEIRD DREAMS, 10/24/17) Promethazine (Verified Adverse Reaction, Intermediate, FLUSHED WEIRD DREAMS, 10/24/17) Current Medications Reported Home Medications Medications Dose Route/Sig Max Daily Dose Days Date Category Flagyl (Metronidazole) 500 Mg Tab 500 Mg PO ONE DOSE 2 HOURS PRE 10/24/17 Reported Aspirin Chewable (Aspirin) 81 Mg Chew 81 Mg PO QAM 10/06/17 Reported D 2000 (Cholecalciferol) 2,000 Unit Tab 1 Tab PO QAM 12/13/16 Reported Multivitamin (Multiple Vitamin) 1 Tab Tab 1 Tab PO QAM 08/27/14 Reported Fish Oil ([place]-3 Fatty Acids) 1,000 Mg Cap 3,000 Mg PO QAM 08/27/14 Reported Vitamin B12 (Cyanocobalamin) 1,000 Mcg Tab 3,000 Mcg PO QAM 08/27/14 Reported Naprosyn (Naproxen) 500 Mg Tab 500 Mg PO QAM 08/27/14 Reported Lipitor (Atorvastatin Calcium) 20 Mg Tab 20 Mg PO QPM 08/27/14 Reported Triamterene/Hctz 37.5-25MG (Triamterene/HCTZ) 1 Tab Tab 1 Tab PO QAM 08/27/14 Reported Vital Signs Weight (Kilograms): 121.36 Height (Feet): 5 Height (Inches): 4 Date Time Temp Pulse Resp B/P (MAP) Pulse Ox O2 Delivery O2 Flow Rate FiO2 3/19/18 14:21 36.8 78 16 153/79 (103) 94 Room Air Physical Exam General Appearance: WD/WN, no apparent distress Respiratory/Chest: Auscultation: breath sounds normal Cardiovascular: Heart Auscultation: RRR Abdomen: Bowel Sounds: normal Inspection & Palpation: soft, non-distended, no tenderness, guarding & rebound Assessment and Plan Assessment: 66 yo CF who presents for screening colonoscopy. Plan: Proceed with colonoscopy.
--- NOTE | 2017-10-24 15:22 | Discharge Instructions ---
Endoscopy Patient Instructions Date / Procedure(s) Performed Oct 24, 2017. Colonoscopy Allergy Information Coded Allergies: Nickel (Verified Allergy, Intermediate, HIVES, 10/24/17) Benzonatate (Verified Adverse Reaction, Intermediate, FLUSHED, WEIRD DREAMS, 10/24/17) Promethazine (Verified Adverse Reaction, Intermediate, FLUSHED WEIRD DREAMS, 10/24/17) Discharge Date / Findings Oct 24, 2017. Rectal polyps Diverticulosis Internal hemorrhoids Medication Instructions OK to resume all medications today as prescribed Reported Home Medications Medications Dose Route/Sig Max Daily Dose Days Date Category Flagyl (Metronidazole) 500 Mg Tab 500 Mg PO ONE DOSE 2 HOURS PRE 10/24/17 Reported Aspirin Chewable (Aspirin) 81 Mg Chew 81 Mg PO QAM 10/06/17 Reported D 2000 (Cholecalciferol) 2,000 Unit Tab 1 Tab PO QAM 12/13/16 Reported Multivitamin (Multiple Vitamin) 1 Tab Tab 1 Tab PO QAM 08/27/14 Reported Fish Oil ([place]-3 Fatty Acids) 1,000 Mg Cap 3,000 Mg PO QAM 08/27/14 Reported Vitamin B12 (Cyanocobalamin) 1,000 Mcg Tab 3,000 Mcg PO QAM 08/27/14 Reported Naprosyn (Naproxen) 500 Mg Tab 500 Mg PO QAM 08/27/14 Reported Lipitor (Atorvastatin Calcium) 20 Mg Tab 20 Mg PO QPM 08/27/14 Reported Triamterene/Hctz 37.5-25MG (Triamterene/HCTZ) 1 Tab Tab 1 Tab PO QAM 08/27/14 Reported Provider Instructions Activity Restrictions - No exercising or heavy lifting for 24 hours. - Do not drink alcohol the day of the procedure. - Do not drive a car or operate machinery until the day after the procedure. - Do not make any important decisions or sign important papers in 24 hours after the procedure. Following Day: - Return to full activity which may include returning to work/school. Diet Start your diet with liquids and light foods (jello, soup, juice, toast). Then eat your usual diet if not nauseated. Treatment For Common After Affects For mild abdominal pain, bloating, or excessive gas: - Rest - Eat lightly - Lie on right side Follow-Up Information Follow-up with DR. MOORE ([facility]) as scheduled Anesthesia Information What You Should Know You have had a procedure that required some medicine to reduce anxiety and discomfort. This treatment is called moderate sedation. After receiving the treatment, you may be sleepy, but you will be able to breathe on your own. The effects of the treatment may last for several hours. Follow these instructions along with Activity/Diet recommendations noted above: * Do NOT do anything where dizziness or clumsiness would be dangerous. * Rest quietly at home today, then you can be up and about tomorrow. * Have a responsible person stay with you the rest of today. * You may have had an I.V. today. If so, you may take the dressing off later today. Recommendations Call your doctor if: * Trouble breathing * Continuous vomiting for more than 24 hours * Temperature above 101 degrees * Severe abdominal pain or bloating * Pain not relieved by pain medicine ordered * There is increased drainage or redness from any incision * A large amount of rectal bleeding greater than 2-3 tablespoons. (If you had a polyp/s removed or have hemorrhoids, a small amount of blood - from the rectum is to be expected.) * You have any unanswered questions or concerns. IN THE EVENT OF A SERIOUS EMERGENCY, GO TO THE NEAREST EMERGENCY ROOM Your discharge instructions were prepared by provider Aaron Franklin. Patient Instructions Signature Page Chio Aguiar Patient (or Guardian) Signature/Date: I have read and understand the instructions given to me by my caregivers. Caregiver/RN/Doctor Signature/Date: The above-named patient and/or guardian has received patient instructions on this date. + Original Patient Signature Page (only) stays with chart. Please make copy for patient.
--- NOTE | 2017-10-24 15:36 | GI REPORT ---
Procedure Date: 10/24/2017 2:53 PM Procedure: Colonoscopy Indications: Screening for colorectal malignant neoplasm Medicines: Monitored Anesthesia Care Complications: No immediate complications. Estimated Blood Loss: Estimated blood loss: none. Procedure: Pre-Anesthesia Assessment: - Prior to the procedure, a History and Physical was performed, and patient medications and allergies were reviewed. The patient's tolerance of previous anesthesia was also reviewed. The risks and benefits of the procedure and the sedation options and risks were discussed with the patient. All questions were answered, and informed consent was obtained. Prior Anticoagulants: The patient has taken aspirin, last dose was 1 day prior to procedure. ASA Grade Assessment: II - A patient with mild systemic disease. After reviewing the risks and benefits, the patient was deemed in satisfactory condition to undergo the procedure. After I obtained informed consent, the scope was passed under direct vision. Throughout the procedure, the patient's blood pressure, pulse, and oxygen saturations were monitored continuously. The On-site loaner was introduced through the anus and advanced to the terminal ileum. The colonoscopy was performed without difficulty. The patient tolerated the procedure well. The quality of the bowel preparation was good. The ileocecal valve, appendiceal orifice, and rectum were photographed. Findings: The perianal and digital rectal examinations were normal. Multiple small-mouthed diverticula were found in the sigmoid colon. Three sessile polyps were found in the rectum. The polyps were 4 to 6 mm in size. These polyps were removed with a cold snare. Resection and retrieval were complete. Non-bleeding internal hemorrhoids were found during retroflexion. The hemorrhoids were small. Impression: - Diverticulosis in the sigmoid colon. - Three 4 to 6 mm polyps in the rectum, removed with a cold snare. Resected and retrieved. - Non-bleeding internal hemorrhoids. Recommendation: - Resume previous diet. - Continue present medications. - Repeat colonoscopy for surveillance based on pathology results. - Return to primary care physician as previously scheduled. Aaron Franklin, DO 10/24/2017 3:35:35 PM This report has been signed electronically. Note Initiated On: 10/24/2017 2:53 PM I attest to the content of the Intraoperative Record and orders documented therein, exceptions below
[2017-10-24 15:54] VITALS: BP 155/86; PULSE 71; O2SAT 94
--- NOTE | 2017-10-24 15:56 | Anesthesiology Progress Note ---
Anesthesia Post Op Note Date & Time Oct 24, 2017 at 15:55 Vital Signs Pain Intensity: 0 Vital Signs Past 12 Hours Date Time Temp Pulse Resp B/P (MAP) Pulse Ox O2 Delivery O2 Flow Rate FiO2 10/24/17 15:39 75 16 138/91 (107) 96 Room Air 10/24/17 15:24 80 16 144/65 (91) 99 Room Air 10/24/17 14:21 36.8 78 16 153/79 (103) 94 Room Air Notes Mental Status: alert / awake / arousable, participated in evaluation Pt Amnestic to Procedure: Yes Nausea / Vomiting: adequately controlled Pain: adequately controlled Airway Patency, RR, SpO2: stable & adequate BP & HR: stable & adequate Hydration State: stable & adequate Anesthetic Complications: no major complications apparent
== END | disposition home or self-care (01) ==
LOC: C.GI 14:01
PROVIDERS: ATTEND Internal Medicine
DX: Z12.11 Encounter for screening for malignant neoplasm of colon (principal); K57.30 Diverticulosis of large intestine without perforation or abscess without bleeding; K64.8 Other hemorrhoids; Z86.010 Personal history of colon polyps; M19.90 Unspecified osteoarthritis, unspecified site; E78.00 Pure hypercholesterolemia, unspecified; I10 Essential (primary) hypertension; Z96.652 Presence of left artificial knee joint; Z96.651 Presence of right artificial knee joint; Z88.8 Allergy status to other drugs, medicaments and biological substances; Z79.82 Long term (current) use of aspirin; Z79.899 Other long term (current) drug therapy

== ENCOUNTER → 2018-02-28 | Outpatient (CLI) | payer OTHER ==
[~2018-02-28] MED LIST changes: -AMOX500C3 PO; -NAPR-1169 PO; +NAPR-22 PO; -SODIUM CHLORIDE 0.9% 500ML 500 ML IV ONE
[2018-02-28 12:58] LABS: HEMATOCRIT 39.2 % (37-47); HEMOGLOBIN 12.7 g/dL (12.0-16.0); MEAN CELL VOLUME 83.2 fL (80-100); MEAN CORPUSCULAR HGB CONC 32.4 g/dl (32-36); MEAN PLATELET VOLUME 12.6 fL (7.4-10.4); PLATELET COUNT 164 K/uL (130-400); RED CELL DISTRIBUTION WIDTH CV 14.7 % (11.5-14.5); RED CELL DISTRIBUTION WIDTH SD 45.1 fL (36.4-46.3); WHITE BLOOD COUNT 4.02 K/uL (4.8-10.8)
[2018-02-28 13:17] LABS: HEMOGLOBIN A1C 6.2 % (4.5-5.6)
[2018-02-28 13:44] LABS: ALBUMIN 3.8 gm/dl (3.4-5.0); ALKALINE PHOSPHATASE 79 U/L (45-117); ALT/SGPT 28 U/L (12-78); AST/SGOT 15 U/L (15-37); BLOOD UREA NITROGEN 19 mg/dl (7-18); CALCIUM 8.9 mg/dl (8.5-10.1); CARBON DIOXIDE 30 mmol/L (21-32); CHOLESTEROL 125 mg/dl (0-200); CREATININE 0.73 mg/dl (0.60-1.20); GLUCOSE 108 mg/dl (70-99); LDL CHOLESTEROL CALCULATED 52 mg/dl; POTASSIUM 3.6 mmol/L (3.5-5.1); SODIUM 141 mmol/L (136-145)
== END | disposition home or self-care (01) ==
LOC: C.LABBFT 10:13
PROVIDERS: ATTEND Family Medicine
DX: R73.01 Impaired fasting glucose (principal)

== ENCOUNTER → 2018-03-01 | Outpatient (CLI) | payer OTHER ==
--- NOTE | 2018-03-01 12:00 | DIAGNOSTIC IMAGING REPORT ---
L SHOULDER MIN 2 VIEWS ROUTINE CLINICAL HISTORY: RADICULAR PAIN IN LT ARM pain COMPARISON: None. DISCUSSION: The bones and joint spaces appear intact. There is no evidence of fracture, dislocation or bony disease. Minimal degenerative changes noted at the acromioclavicular joint as well as glenohumeral joint. IMPRESSION: Minimal degenerative change. No acute process. The above report was generated using voice recognition software. It may contain grammatical, syntax or spelling errors. Electronically signed by: Silas Mcghee M.D. 03/01/2018 11:58 AM Dictated Date/Time: 03/01/2018 11:57 AM
--- NOTE | 2018-03-01 12:01 | DIAGNOSTIC IMAGING REPORT ---
C-SPINE ROUTINE 4 OR 5 VIEWS HISTORY: Pain RADICULAR PAIN IN LT ARM COMPARISON: None. FINDINGS: The cervical spine is visualized from C1 through the superior endplate of T1. There is no fracture. Moderate degenerative disc change C5-C7. Anterior and posterior osteophyte formation from C5 through C7. Moderate osteophytic narrowing of the neuroforamina bilaterally C5-T1. IMPRESSION: Moderate degenerative change primarily of the lower cervical region are The above report was generated using voice recognition software. It may contain grammatical, syntax or spelling errors. Electronically signed by: Silas Mcghee M.D. 03/01/2018 11:59 AM Dictated Date/Time: 03/01/2018 11:59 AM
== END | disposition home or self-care (01) ==
LOC: C.RADPV 11:49
PROVIDERS: ATTEND Family Medicine
DX: M79.2 Neuralgia and neuritis, unspecified (principal)

== ENCOUNTER → 2018-03-30 | Outpatient (CLI) | payer OTHER ==
--- NOTE | 2018-03-31 14:30 | MAMMOGRAPHY REPORT ---
BILATERAL DIGITAL SCREENING MAMMOGRAM TOMOSYNTHESIS WITH CAD: 03/30/2018 CLINICAL HISTORY: Routine screening. Patient has no complaints. TECHNIQUE: Breast tomosynthesis in addition to standard 2D mammography was performed. Current study w as also evaluated with a Computer Aided Detection (CAD) system. COMPARISON: Comparison is made to exams dated: 03/24/2017 mammogram, 03/23/2016 mammogram, 04/01/2015 m ammogram, 03/20/2015 mammogram, 03/19/2014 mammogram, and 03/08/2013 mammogram - [facility] nter. BREAST COMPOSITION: The tissue of both breasts is heterogeneously dense, which may obscure small mass es. FINDINGS: No suspicious masses, calcifications, or areas of architectural distortion are noted in either breast . There has been no significant interval change compared to prior exams. Multiple small circumscribe d benign-appearing masses are again noted bilaterally, best seen on the tomosynthesis images, which a re considered benign given the multiplicity and bilaterality and likely represent cysts. IMPRESSION: ACR BI-RADS CATEGORY 2: BENIGN There is no mammographic evidence of malignancy. A 1 year screening mammogram is recommended.( 019) The patient will receive written notification of the results. Some breast cancers are not detected with mammography. A negative mammographic report should not margarita y biopsy if a clinically suggestive mass is present. Argelia Lara M.D. /:03/30/2018 16:29:03 Handle Rounder Operator: RT Leta([place])([place])([place]), [facility] letter sent: Normal 1/2 BI-RADS Code: ACR BI-RADS Category 2: Benign
== END | disposition home or self-care (01) ==
LOC: C.MAMM 09:50
PROVIDERS: ATTEND Family Medicine
DX: Z12.31 Encounter for screening mammogram for malignant neoplasm of breast (principal)

== ENCOUNTER 2023-05-17 09:24 | Inpatient (IN) ==
--- NOTE | 2023-04-25 12:27 | PAT Medication Instructions ---
Medication Instructions Date of Service April 25, 2023 Home Medications Medication Instructions Recorded albuterol sulfate 90 mcg/actuation 2 puff inhalation Q6H PRN 04/13/22 aerosol inhaler Shortness Of Breath Or Wheezing #18 grams fluticasone propionate 230 2 puff inhalation BID #12 grams 01/20/23 mcg-salmeterol 21 mcg/actuation HFA inhaler (Advair HFA) tizanidine 4 mg tablet 4 mg PO BID PRN muscle spasticity 02/04/23 #30 tabs atorvastatin 20 mg tablet 20 mg PO HS #90 tabs 02/18/23 losartan 25 mg tablet 25 mg PO QAM #90 tabs 02/18/23 naproxen 500 mg tablet 500 mg PO BID PRN pain #180 tabs 02/18/23 omeprazole 40 mg capsule,delayed 40 mg PO QAM #90 caps 02/18/23 release triamterene 37.5 1 tab PO QAM #90 tabs 02/18/23 mg-hydrochlorothiazide 25 mg tablet (Maxzide-25mg) metformin 1,000 mg tablet 1,000 mg PO BID #180 tabs 04/20/23 Medication List: multivitamin with minerals 1 tab PO QAM omega-3 acid ethyl esters 1 gram capsule 2 cap PO QAM aspirin 81 mg tablet,delayed release (Ofelia Low Dose Aspirin) 81 mg PO QAM amoxicillin 500 mg capsule 2,000 mg PO UD PRN pre surgery/pre dental albuterol sulfate 90 mcg/actuation aerosol inhaler 2 puff inhalation Q6H PRN Rhonda rtness Of Breath Or Wheezing cholecalciferol (vitamin D3) 25 mcg (1,000 unit) capsule 2,000 unit PO QAM cyanocobalamin (vitamin B-12) 1,000 mcg tablet (Vitamin B-12) 1,000 mcg PO QAM fluticasone propionate 230 mcg-salmeterol 21 mcg/actuation HFA inhaler (Advair HFA) 2 puff inhalation BID tizanidine 4 mg tablet 4 mg PO BID PRN muscle spasticity atorvastatin 20 mg tablet 20 mg PO HS losartan 25 mg tablet 25 mg PO QAM naproxen 500 mg tablet 500 mg PO BID PRN pain omeprazole 40 mg capsule,delayed release 40 mg PO QAM triamterene 37.5 mg-hydrochlorothiazide 25 mg tablet (Maxzide-25mg) 1 tab PO QAM metformin 1,000 mg tablet 1,000 mg PO BID Medication Instructions: Continue as directed fluticasone propionate 230 mcg-salmeterol 21 mcg/actuation HFA inhaler (Advair HFA) 2 puff inhalation BID albuterol sulfate 90 mcg/actuation aerosol inhaler 2 puff inhalation Q6H PRN Shortness Of Breath Or Wheezing (bring to hospital day of surgery) ASK your surgeon for instructions naproxen 500 mg tablet 500 mg PO BID PRN pain ASK your prescriber and surgeon amoxicillin 500 mg capsule 2,000 mg PO UD PRN pre surgery/pre dental aspirin 81 mg tablet,delayed release ([place] Low Dose Aspirin) 81 mg PO QAM STOP taking 2 weeks before surgery omega-3 acid ethyl esters 1 gram capsule 2 cap PO QAM DO NOT take the morning of surgery metformin 1,000 mg tablet 1,000 mg PO BID losartan 25 mg tablet 25 mg PO QAM multivitamin with minerals 1 tab PO QAM cholecalciferol (vitamin D3) 25 mcg (1,000 unit) capsule 2,000 unit PO QAM cyanocobalamin (vitamin B-12) 1,000 mcg tablet (Vitamin B-12) 1,000 mcg PO QAM triamterene 37.5 mg-hydrochlorothiazide 25 mg tablet (Maxzide-25mg) 1 tab PO QAM tizanidine 4 mg tablet 4 mg PO BID PRN muscle spasticity Take morning of surgery With a small sip of water, OTHERWISE NOTHING TO EAT OR DRINK AFTER MIDNIGHT: omeprazole 40 mg capsule,delayed release 40 mg PO QAM Take evening before surgery metformin 1,000 mg tablet 1,000 mg PO BID atorvastatin 20 mg tablet 20 mg PO HS tizanidine 4 mg tablet 4 mg PO BID PRN muscle spasticity Other Notes If you have any questions please call us at [phone] or [phone] or [phone] or [phone]
--- NOTE | 2023-04-27 10:28 | Anesthesiology Consultation ---
Date of Service April 27, 2023 Assessment & Plan (1) Encounter for pre-operative examination: Chart Review Chart Review: Acceptable Risk for Surgery (pending pulm appt 05/02/23 and PCP appt 05/09/23) and Patient seen in Pre Admission Testing - Awaiting [place] app[place] 05/02/23 ([place]) - Awaiting PCP appt 05/09/23 ([place]) - Check BSG AM DOS Per PAT appt on 04/27/23, no recent illness/disease exposures, illness related symptoms, or recent illness/disease positive tests. Will leave to surgeon's discretion if preop Covid testing needed Direct microlaryngoscopy 04/29/22= Done under [facility] with Grade 1 view with Glidescope #3. ETT #6.0 Teaching & Discussion Pre-Anesthesia Teaching/Discussion Notes: Instructed NPO after midnight before surgery,except medications with 15 cc of water. Medication instructions provided according to the PAT guidelines. History Surgery Operation Date: 05/17/23 07:15 Proposed Procedures p Lateral Fusion Cage Placement with Posterior Fusion and Decompression at L4-L5 and Posterior Instrumention - Brian Stover MD Height/Weight Height: 5 ft 4 in Weight: 120.8 kg Allergies Allergy/AdvReac Type Severity Reaction Status Date / Time nickel Allergy Severe HIVES Verified 04/25/23 13:25 adhesive tape Allergy Mild Rash Verified 04/25/23 13:25 benzonatate AdvReac Mild FLUSHED, Verified 04/25/23 13:25 WEIRD DREAMS promethazine AdvReac Mild FLUSHED Verified 04/25/23 13:25 WEIRD DREAMS Medications Home Medications Medication Instructions Recorded Confirmed Last Taken multivitamin with minerals 1 tab PO QAM 02/24/19 04/25/23 10/26/22 omega-3 acid ethyl esters 1 gram 2 cap PO QAM 04/18/19 04/25/23 10/26/22 capsule aspirin 81 mg tablet,delayed 81 mg PO QAM 05/23/21 04/25/23 10/27/22 05:45 release (Ofelia Low Dose Aspirin) amoxicillin 500 mg capsule 2,000 mg PO UD PRN pre surgery/pre 11/24/21 04/25/23 Unknown dental cholecalciferol (vitamin D3) 25 2,000 unit PO QAM 08/20/22 04/25/23 10/26/22 mcg (1,000 unit) capsule cyanocobalamin (vitamin B-12) 1,000 mcg PO QAM 10/21/22 04/25/23 10/26/22 1,000 mcg tablet (Vitamin B-12) tizanidine 4 mg tablet 4 mg PO BID PRN muscle spasticity 02/04/23 04/25/23 Unknown #30 tabs atorvastatin 20 mg tablet 20 mg PO HS #90 tabs 02/18/23 04/25/23 Unknown losartan 25 mg tablet 25 mg PO QAM #90 tabs 02/18/23 04/25/23 Unknown naproxen 500 mg tablet 500 mg PO BID PRN pain #180 tabs 02/18/23 04/25/23 Un known omeprazole 40 mg capsule,delayed 40 mg PO QAM #90 caps 02/18/23 04/25/23 Unknown release triamterene 37.5 1 tab PO QAM #90 tabs 02/18/23 04/25/23 Unknown mg-hydrochlorothiazide 25 mg tablet (Maxzide-25mg) metformin 1,000 mg tablet 1,000 mg PO BID #180 tabs 04/20/23 04/25/23 Unknown Past Medical History Medical History Aortic stenosis Mild to moderate per 09/24/21 ECHO DM2 (diabetes mellitus, type 2) Glucose controlled per patient GERD (gastroesophageal reflux disease) Well controlled and stable History of COVID-26 MAY 2021 - hx of pneumonia- issues with vocal cords since Covid infx- follows with [place] pulm>not using inhaler currently HTN (hypertension) Hypercholesteremia Vocal cord paralysis voice hoarseness> s/p vocal cord injections with Dr. Garcia, Dr. Vega with [facility] scoped in office summer 2022- still not vibrating - planning for voice PT and observation with ENT Exercise / Class Metabolic Activity II 4-5 Yardwork/Stairs/Walk up hill (one flight of stairs - no chest pain or SOB ) Past Family History Family History Father Coronary heart disease Myocardial infarction Hypertension Heart disease Mother Diabetes Hypertension Heart disease Other No family history of adverse response to anesthesia No family history of bleeding disorder Denies family history of Ovarian cancer Prostate cancer Breast cancer Colorectal cancer Past Surgical History Surgical History History of arthroscopy of knee rt knee History of colonoscopy History of dilation and curettage History of hysteroscopy History of left knee replacement History of right knee joint replacement History of tooth extraction History of wisdom tooth extraction Status post right foot surgery bunionectomy Past Anesthesia History No Hx of Anesthesia Complications and No Family Hx of Anesthesia Complications History of PONV No Hx of PONV and No Hx of Motion Sickness Social History Smoking Status: Never smoker Do You Dip or Chew Tobacco: No Hx Alcohol Use: Yes Alcohol type: beer alcohol intake frequency: holidays/special occasions only substance use type: does not use Review of Systems - Hx of snoring - no witnessed apnea - no sleep study Patient denies chest pain, shortness of breath, dyspnea on exertion, cough, wheezing, palpitations. No hx of seizures, stroke, IA. No hx of blood clots or blood transfusions Physical Exam Vital Signs VITALS BP 153/86 P 73 TEMP 97.6 SP02 97% RESP 16 Constitutional no acute distress ENMT Mouth: no TMJ clicking Thyromental Distance: < 3.5 Finger Breadths (2.5) Mallampati Class: I Temporary cap on bottom right molar area (permanent cap to be placed in several months) Neck + limited neck extension Respiratory normal respiratory effort; no respiratory distress Auscultation: + wheezes (mild throughout otherwise CTA ) Cardiovascular Rate/Rhythm: regular rate and regular rhythm Heart Sounds: + murmur (II/ murmur ) Vessels: no carotid bruit Musculoskeletal Spine: no pain with cervical ROM Extremities: extremities normal to inspection Psychiatric Orientation: alert Lab Results Anesthesia Preop Results Results Anesthesia Widget: WBC 4.89 K/ul (4.8-10.8) 04/27/23 Hgb 11.4 g/dl (12.0-16.0) L 04/27/23 Hct 34.9 % (37.0-47.0) L 04/27/23 Plt 169 K/uL (130-400) 04/27/23 Na 141 mmol/L (136-145) 04/27/23 K 4.3 mmol/L (3.5-5.1) 04/27/23 Cl 104 mmol/L (98-107) 04/27/23 CO2 31 mmol/L (21-32) 04/27/23 BUN 19 mg/dl (6-23) 04/27/23 Creat 0.92 mg/dl (0.6-1.2) 04/27/23 Glucose Level 120 mg/dl (70-99(Fasting)) H 04/27/23 PT 10.9 Seconds (9.0-12.0) 04/27/23 PTT 29.1 Seconds (21.0-31.0) 04/27/23 INR 1.0 (0.9-1.1) 04/27/23 HA1c 5.9 % (4.5-5.6) H 04/27/23 Urine Color Yellow 04/27/23 Urine Appearance Clear (Clear) 04/27/23 Urine pH 7.5 (4.5-7.5) 04/27/23 Urine Specific Carson 1.019 (1.000-1.030) 04/27/23 Urine Protein Negative (Negative) 04/27/23 Urine Glucose (UA) Negative (Negative) 04/27/23 Urine Ketones Negative (Negative) 04/27/23 Urine Blood Negative (Negative) 04/27/23 Urine Nitrite Negative (Negative) 04/27/23 Urine Bilirubin Negative (Negative) 04/27/23 Urine Urobilinogen Negative (Negative) 04/27/23 Urine Leukocyte Esterase 1+ (Negative) H 04/27/23 Urine WBC (Auto) 1-5 /hpf (0-5) 04/27/23 Urine RBC (Auto) 0-4 /hpf (0-4) 04/27/23 Urine Hyaline Casts (Auto) 1-5 /lpf (0-5) 04/27/23 Urine Epithelial Cells (Auto) >30 /lpf (0-5) H 04/27/23 Urine Bacteria (Auto) Negative (Negative) 04/27/23 Blood Type O Positive 04/27/23 Antibody Screen NEGATIVE 04/27/23 Testing Electrocardiogram Date: 04/27/23 Findings: + NSR @ (74bpm ) Low voltage QRS Diffuse minor nonspecific T wave abnormality When compared to EKG from May 23, 2021-criteria for anterior infarct are no longer present, otherwise no significant change per cardio Chest X-Ray Date: 04/27/23 FINDINGS: PA and lateral chest radiographs are compared to study dated 06/23/2021 and correlated with chest CT dated 04/08/2022. The heart is enlarged noting atherosclerotic calcification of the thoracic aorta. The pulmonary vasculature is noncongested. Chronic interstitial thickening and mild elevation of the right hemidiaphragm is similar to previous. There is mild bibasilar atelectasis. The lungs and pleural spaces are otherwise clear. There is no pneumothorax. The skeletal structures are osteopenic. The bony thorax appears intact. Degenerative change is noted in the spine. IMPRESSION: Cardiomegaly with no active disease in the chest. Echocardiogram Date: 09/24/21 EF: 60-65% RWMA: + none Other Findings: + diastolic dysfunction (Class I) Normal biventricular systolic function Mild left ventricle dilation. Mild cLVH. Mild left atrial dilation. Mild to moderate aortic stenosis. Dimensionless valve index is consistent with moderate stenosis. Calculated aortic valve area and mean gradient across the valve area consistent with mild stenosis. NATHANIEL 0.98cm2; AV mean PG 14.2mmHg; AV max velocity 2.731 m/s Trace TR. Normal estimated RVSP. Compared to echocardiogram of November 02, 2018-no significant interval change. Other Testing PFT 04/05/2023 = no obstructive lung dysfunction, insignificant bronchodilator response. Normal TLC with severe decrease in ERV. Normal DLCO. No significant change in FVC, FEV1, TLC, DLCO compared to October 2021. Suggest clinical correlation.
[~2023-05-17 09:24] MED LIST changes: -ASPCH81X PO; -ATOR-22 PO; -CHOL1TAB76 PO; -CYAN100020 PO; +DEXAMETHASONE SOD INJ 4 MG/ML VIAL ONE; +KETAMINE 50 MG/5 ML SYRINGE ONE; +LIDOCAINE 2% 2 ML VIAL/AMP(20MG/ML) INFIL ONE; +LR 15ML/HR IV SCH; +LR 60ML/HR IV SCH; -METR-163 PO; +MIDAZOLAM HCL 1 MG/ML 2ML VIAL ONE; -MULTTAB58 PO; -NAPR-22 PO; -OMEG10002 PO; +ONDANSETRON INJ 2 MG/ML 2 ML VIAL ONE; +PROPOFOL IV EMULSION 10 MG/ML 100 ML VIAL IV ONE; +PROPOFOL IV EMULSION 10 MG/ML 20 ML VIAL IV ONE; +ROCURONIUM BROMIDE 10 MG/ML 5 ML VIAL IV ONE; +SUGAMMADEX SODIUM 200 MG/2 ML VIAL IV ONE; -TRIATAB3 PO; +fentaNYL citrate PF 100 MCG/2 ML VIAL ONE
[2023-05-17] MEDS ORDERED: ONDANSETRON INJ 2 MG/ML 2 ML VIAL IV PRN ×2 (11:28→20:23)
[2023-05-17] MEDS ORDERED: HYDROmorphone INJ 1 MG/ML SYRINGE IV PRN (11:28)
[2023-05-17] MEDS ORDERED: ATROPINE SULFATE 0.1 MG/ML 10ML SYR IV PRN (11:28)
[2023-05-17] MEDS ORDERED: ePHEDrine sulfate 50 MG/ML AMP IV PRN (11:28)
[2023-05-17] MEDS ORDERED: fentaNYL citrate PF 100 MCG/2 ML VIAL IV PRN (11:28)
[2023-05-17] MEDS ORDERED: GELATIN SPONGE SZ 100 ONE (12:05)
[2023-05-17] MEDS ORDERED: THROMBIN 5000 UNITS KIT ONE (12:05)
[2023-05-17] MEDS ORDERED: VANCOMYCIN HCL 1000MG/20ML VIAL ONE (12:05)
[2023-05-17] MEDS ORDERED: BUPIVACAINE/EPINEPHRINE 0.5% MPF 1:200,000 30 ML VIAL ONE (12:06)
--- NOTE | 2023-05-17 12:35 | History & Physical Bridge Note ---
Date of Service May 17, 2023 History & Physical Bridge Note I have examined the patient, reviewed the History & Physical and in the interval since the performance of the History & Physical I have noted the following changes of clinical significance: no changes noted
[2023-05-17] MEDS ORDERED: ROCURONIUM BROMIDE 10 MG/ML 5 ML VIAL IV ONE ×5 (13:00)
[2023-05-17] MEDS ORDERED: ePHEDrine sulfate 50 MG/5 ML SYR ONE (13:40)
[2023-05-17] MEDS ORDERED: fentaNYL citrate PF 100 MCG/2 ML VIAL ONE ×3 (13:54→17:04)
[2023-05-17] MEDS ORDERED: HYDROmorphone INJ 2 MG/ML SYR/VIAL ONE (17:45)
--- NOTE | 2023-05-17 19:03 | Fluoroscopy Report ---
FL lumbar spine 2-3V CLINICAL HISTORY: LATERAL CAGE PLACEMENT W/ POSTERIOR FUSION L4-L5 COMPARISON STUDY: Lumbar spine MRI February 16, 2023. Lumbar spine radiographs February 04, 2023. FLUOROSCOPY TIME: 523.4 seconds. EXPOSURE DOSE: 585.73 mGy FLUOROSCOPIC IMAGES: 14 FINDINGS: Fluoroscopy was provided during L4-L5 lateral cage placement with posterior fusion. Skin st aples are noted. Hardware is intact. IMPRESSION: Fluoroscopy provided during L4-L5 lateral cage placement with posterior fusion. ACT 112: Negative or not required by law. Electronically signed by: Jas Cole M.D. 05/17/2023 7:01 PM
[2023-05-17] MEDS ORDERED: LORazepam 0.5 MG TAB PO PRN (20:23)
[2023-05-17] MEDS ORDERED: DO NOT ADMINISTER PNEUMOCOCCAL VACCINE PRN (20:23)
[2023-05-17] MEDS ORDERED: DO NOT ADMINISTER FLU VACCINE PRN (20:23)
[2023-05-17] MEDS ORDERED: bisacodyL 10 MG SUPP PR PRN (20:23)
[2023-05-17] MEDS ORDERED: ACETAMINOPHEN 1,000 MG/100 ML VIAL IV PRN (20:23)
[2023-05-17] MEDS ORDERED: ACETAMINOPHEN 500 MG TAB PO PRN (20:23)
[2023-05-17] MEDS ORDERED: PROMETHAZINE HCL 12.5 MG in SODIUM CHLORIDE 0.9% 50 ML IV PRN (20:23)
[2023-05-17] MEDS ORDERED: MAGNESIUM HYDROXIDE SUSP 30 ML UDC PO PRN (20:23)
[2023-05-17] MEDS ORDERED: LORazepam 2 MG/1 ML VIAL IV PRN (20:23)
[2023-05-17] MEDS ORDERED: HYDROmorphone INJ 0.5 MG/0.5 ML SYR IV PRN (20:23)
[2023-05-17] MEDS ORDERED: SOD PHOSPHATE/SOD BIPHOSPHATE ENEMA 132 ML BTL PR PRN (20:23)
[2023-05-17] MEDS ORDERED: ONDANSETRON 4 MG OD TAB PO PRN (20:23)
[2023-05-17] MEDS ORDERED: diphenhydrAMINE Capsule 25 MG CAP PO PRN (20:23)
[2023-05-17] MEDS ORDERED: ALUMINUM/MAGNESIUM SUSP 30 ML UDC PO PRN (20:23)
[2023-05-17] MEDS ORDERED: LACTATED RINGER'S 1,000 ML IV SCH (20:23)
[2023-05-17] MEDS ORDERED: hydrOXYzine HCl 25 MG TAB PO PRN (20:23)
[2023-05-17] MEDS ORDERED: METOCLOPRAMIDE HCL INJ 5 MG/ML 2 ML VIAL IV PRN (20:23)
[2023-05-17] MEDS ORDERED: NALOXONE HCL 0.4 MG/1 ML VIAL/CARP IV PRN (20:23)
[2023-05-17] MEDS ORDERED: FAMOTIDINE 20 MG TAB PO PRN (20:23)
--- NOTE | 2023-05-17 20:55 | Anesthesiology Progress Note ---
Date of Service May 17, 2023 Anesthesia Post Procedure Vital Signs Vital Signs: Temp Pulse Pulse Pulse Resp BP Pulse Ox 05/17/23 20:00 37.1 C 83 14 158/78 H 99 05/17/23 19:50 36.4 C L 84 12 156/87 H 100 05/17/23 19:40 86 12 159/92 H 100 05/17/23 19:30 88 12 152/75 H 100 05/17/23 19:20 88 13 151/85 H 100 05/17/23 19:18 83 15 100 05/17/23 19:10 84 13 140/67 98 05/17/23 19:00 87 13 121/72 92 05/17/23 18:50 36.0 C L 96 H 10 L 95/52 L 93 05/17/23 09:59 36.9 C 79 20 155/72 H 92 O2 Del Method O2 Flow Rate FiO2 05/17/23 20:00 Nasal Cannula 3 05/17/23 19:50 Nasal Cannula 3 05/17/23 19:40 Nasal Cannula 4 05/17/23 19:30 Nasal Cannula 4 05/17/23 19:20 BiPAP 05/17/23 19:18 40 05/17/23 19:10 BiPAP 05/17/23 19:00 Oxymask 15 05/17/23 18:50 Oxymask 15 05/17/23 09:59 Room Air Transfer of Care Handoff Completed per policy Notes Mental Status: alert / awake / arousable and participated in evaluation Patient Amnestic to Procedure: Yes Nausea / Vomiting: adequately controlled Pain: adequately controlled Airway Patency, RR, SpO2: stable & adequate BP & HR: stable & adequate Hydration State: stable & adequate Anesthetic Complications: no major complications apparent and Pt Satisfied with anesthetic care
--- NOTE | 2023-05-17 20:57 | Hospitalist Consultation ---
Date of Consultation May 17, 2023 Assessment & Plan (1) Lumbar back pain with radiculopathy affecting left lower extremity: 72yo Female with PMH morbid obesity aortic valve stenosis HLD DM2 HTN here for lumbar surgery 05/[address] Stover, hospitalist team was consulted for evaluation. Lumbar Back Pain s/p surgery -s/p spine surgery 05/[address] Stover cefazolin ordered -pain control with dilaudid, tylenol, oxycodone, cyclobenzaprine -nausea medications ordered -jones in place -clear liquid diet -bowel regime ordered HTN -continue Maxzide, losartan GERD -continue famotidine, protonix Anxiety -continue PRN hydroxyzine, ativan DM2 -continue metformin FENa: clear liquid carb consistent Code Status: Full DVT PPX: SCDs PT/OT: ordered Dispo: med/surg Indy Serra D.O. PGY 3, FCM (2) Morbid obesity: (3) DM2 (diabetes mellitus, type 2): (4) Mixed hyperlipidemia: (5) Benign essential hypertension: Supervising Physician Co-Signing Physician Notes Attending addendum: I have physically seen this patient, have supervised the medical residents activities, and agree with the H&P unless as otherwise noted. Assessment and Plan: Status post lumbar spine surgery- Seen postoperatively is medically stable Continue ongoing pain management and surgery medications by primary service Diabetes mellitus- Hold metformin Place on Accu-Cheks with NovoLog SSI Most recent hemoglobin A1c on 04/27/2023 was 5.9 Hypertension/aortic stenosis- Continue IV fluids LR at 75 MLS per hour Hold triamterene/HCTZ until creatinine verified as normal in the a.m. Continue losartan Check a CBC with differential, chemistry profile and magnesium level in a.m. GERD- Continue omeprazole/pantoprazole Remaining orders and notations as noted History of Present Illness Attending Physician: Brian Stover MD History of Present Illness 72yo Female with PMH morbid obesity aortic valve stenosis HLD DM2 HTN here for lumbar surgery 05/[address] Stover, hospitalist team was consulted for evaluation. Patient states she had an L4-L5 cage procedure performed today for her chronic lower back pain with radiculopathy, tolerated well, states her pain is well controlled with medication. Patient denies any SOB nausea vomitting pain in extremities numbness or tingling. She has some discomfort in her back that she attributes to laying in bed. Jones is in place. Patient requests a pillow for her legs, otherwise no concerns at this time. Allergies Allergy/AdvReac Type Severity Reaction Status Date / Time nickel Allergy Severe HIVES Verified 05/17/23 09:52 adhesive tape Allergy Mild Rash Verified 05/17/23 09:52 benzonatate AdvReac Mild FLUSHED, Verified 05/17/23 09:52 WEIRD DREAMS promethazine AdvReac Mild FLUSHED Verified 05/17/23 09:52 WEIRD DREAMS Home Medications Medication Instructions Recorded Confirmed Type multivitamin with minerals 1 tab PO QAM 02/24/19 05/17/23 History omega-3 acid ethyl esters 1 gram 2 cap PO QAM 04/18/19 05/17/23 History capsule aspirin 81 mg tablet,delayed 81 mg PO QAM 05/23/21 05/17/23 History release (Ofelia Low Dose Aspirin) amoxicillin 500 mg capsule 2,000 mg PO UD PRN pre surgery/pre 11/24/21 05/17/23 History dental cholecalciferol (vitamin D3) 25 2,000 unit PO QAM 08/20/22 05/17/23 History mcg (1,000 unit) capsule cyanocobalamin (vitamin B-12) 1,000 mcg PO QAM 10/21/22 05/17/23 History 1,000 mcg tablet (Vitamin B-12) tizanidine 4 mg tablet 4 mg PO BID PRN muscle spasticity 02/04/23 05/17/23 Rx #30 tabs atorvastatin 20 mg tablet 20 mg PO HS #90 tabs 02/18/23 05/17/23 Rx losartan 25 mg tablet 25 mg PO QAM #90 tabs 02/18/23 05/17/23 Rx naproxen 500 mg tablet 500 mg PO BID PRN pain #180 tabs 02/18/23 05/17/23 Rx omeprazole 40 mg capsule,delayed 40 mg PO QAM #90 caps 02/18/23 05/17/23 Rx release triamterene 37.5 1 tab PO QAM #90 tabs 02/18/23 05/17/23 Rx mg-hydrochlorothiazide 25 mg tablet (Maxzide-25mg) metformin 1,000 mg tablet 1,000 mg PO BID #180 tabs 04/20/23 05/17/23 Rx Patient History Medical History Aortic stenosis DM2 (diabetes mellitus, type 2) GERD (gastroesophageal reflux disease) History of COVID-19 HTN (hypertension) Hypercholesteremia Vocal cord paralysis Surgical History History of arthroscopy of knee History of colonoscopy History of dilation and curettage History of hysteroscopy History of left knee replacement History of right knee joint replacement History of tooth extraction History of wisdom tooth extraction Status post right foot surgery Family History Father Coronary heart disease Myocardial infarction Hypertension Heart disease Mother Diabetes Hypertension Heart disease Other No family history of adverse response to anesthesia No family history of bleeding disorder Denies family history of Ovarian cancer Prostate cancer Breast cancer Colorectal cancer Social History Smoking Status: Never smoker Second Hand Exposure: No; Do You Dip or Chew Tobacco: No; Hx Alcohol Use: No Hx Substance Use: No Preferred Language: Wallisian Communication Ability: Effective Visual Impairment: No Limitations Hearing Ability: Normal Waist Fitter Required: No Beliefs That Will Affect Care: None marital status: Current Living Situation: Spouse Current Living Situation Comment: lives in a 2 story home with current occupational status: retired 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 How many Children do You have: 2 Other Information That Helps Us Care for You: No Feels Safe at Home: Yes Safety Concerns: Feels Safe At This Time Childhood Exposure to Second-Hand Smoke: No Diet: regular caffeine: No Dental Care, Regularly: Yes Physical Activity Frequency: Daily Seatbelt Use: always Sunscreen Use: Yes Assistive Devices: Glasses and Walker Physical Exam Constitutional: well developed, well nourished, + morbidly obese, cooperative and comfortable Eyes: PERRL, conjunctivae normal, anicteric sclerae ENMT: external ear and nose normal, oropharynx normal Neck: trachea midline, no thyromegaly Respiratory: normal respiratory effort, lungs clear to auscultation Cardiovascular: Rate/Rhythm: regular rate and regular rhythm Heart Sounds: + murmur (systolic) Vessels: dorsalis pedis pulses present Extremities: no edema Gastrointestinal (Abdomen): Inspection/Auscultation: abdomen normal to inspection Percussion/Palpation: abdomen soft; abdomen nontender Skin: no rashes, warm and dry Neurologic: sensation intact in lower extremities Genitourinary: jones in place Results & Data Results & Data Vital Signs (Past 12 Hours) Vital Signs Temp Pulse Pulse Pulse Resp BP Pulse Ox 05/17/23 20:00 37.1 C 83 14 158/78 H 99 05/17/23 19:50 36.4 C L 84 12 156/87 H 100 05/17/23 19:40 86 12 159/92 H 100 05/17/23 19:30 88 12 152/75 H 100 05/17/23 19:20 88 13 151/85 H 100 05/17/23 19:18 83 15 100 05/17/23 19:10 84 13 140/67 98 05/17/23 19:00 87 13 121/72 92 05/17/23 18:50 36.0 C L 96 H 10 L 95/52 L 93 05/17/23 09:59 36.9 C 79 20 155/72 H 92 O2 Del Method O2 Flow Rate FiO2 05/17/23 20:00 Nasal Cannula 3 05/17/23 19:50 Nasal Cannula 3 05/17/23 19:40 Nasal Cannula 4 05/17/23 19:30 Nasal Cannula 4 05/17/23 19:20 BiPAP 05/17/23 19:18 40 05/17/23 19:10 BiPAP 05/17/23 19:00 Oxymask 15 05/17/23 18:50 Oxymask 15 05/17/23 09:59 Room Air Resident Activity Tracking Resident Involvement: Resident Care Provided Care Provided: Adult Hospital Medicine
[2023-05-17] MEDS ORDERED: metFORMIN HCL 500 MG TAB PO SCH (21:00)
[2023-05-17] MEDS: CYCLOBENZAPRINE HCL 10 MG TAB PO SCH (21:34)
[2023-05-17] MEDS: DOCUSATE SODIUM/SENNA 50/8.6MG TAB PO SCH (21:34)
[2023-05-18] MEDS: ceFAZolin 2000MG 2,000 MG/15 ML SYR IV SCH ×2 (01:04→09:41)
[2023-05-18] MEDS ORDERED: ceFAZolin 1000MG 1,000 MG/7.5 ML SYR IV SCH (01:45)
[2023-05-18] MEDS ORDERED: GLUCAGON FOR INJ 1 MG VIAL SQ PRN (04:56)
[2023-05-18] MEDS ORDERED: DEXTROSE 50% 50 ML SYRINGE IV PRN (04:56)
[2023-05-18] MEDS ORDERED: CARBOHYDRATES FOR HYPOGLYCEMIA PO PRN (04:56)
[2023-05-18] MEDS ORDERED: GLUCOSE 40% GEL 15 GM TUBE PO PRN (04:56)
[2023-05-18] MEDS ORDERED: GLUCOSE 10 TAB/TUBE PO PRN (04:56)
--- NOTE | 2023-05-18 05:06 | Billing Data ---
Date of Service May 18, 2023 Coding Level of Care Code 59075 IN/OBS CONSULT LVL 3,45M
[2023-05-18] MEDS: POLYETHYLENE (MIRALAX) 17 GM PACK PO SCH ×3 (06:05→17:33)
[2023-05-18] MEDS: CYCLOBENZAPRINE HCL 10 MG TAB PO SCH ×3 (06:05→21:27)
[2023-05-18] MEDS: oxyCODONE/ACETAMINOPHEN 5mg/325mg TAB PO PRN ×2 (08:10→19:29)
[2023-05-18] MEDS: PANTOprazole 40 MG TAB PO SCH (08:12)
[2023-05-18] MEDS: LOSARTAN POTASSIUM 25 MG TAB PO SCH (08:12)
[2023-05-18] MEDS: INSULIN ASPART PER UNIT CHARGE SC SCH ×4 (08:15→20:59)
[2023-05-18 08:37] LABS: Basophils # (auto) 0.01 K/uL (0.00-0.20); Basophils % (auto) 0.1 %; Hematocrit (blood only) 33.1 % (37.0-47.0); Hemoglobin 10.7 g/dl (12.0-16.0); Immature Granulocytes # (auto) 0.04 K/uL (0.01-0.20); Immature Granulocytes % (auto) 0.5 %; Lymphocytes # (auto) 0.65 K/uL (1.20-3.40); Lymphocytes % (auto) 8.5 %; Mean Corpuscular Hemoglobin 27.1 pg (25.0-34.0); Mean Corpuscular Hgb Conc 32.3 g/dL (32.0-36.0); Mean Corpuscular Volume 83.8 fL (80.0-100.0); Mean Platelet Volume 11.9 fL (9.4-12.4); Monocytes # (auto) 0.55 K/uL (0.11-0.59); Monocytes % (auto) 7.2 %; Neutrophils # (auto) 6.43 K/uL (1.40-6.50); Neutrophils % (auto) 83.7 %; Platelet Count 176 K/uL (130-400); RDW Coefficient of Variation 14.3 % (11.5-14.5); RDW Standard Deviation 43.4 fL (36.4-46.3); Red Blood Count 3.95 M/uL (4.20-5.40); White Blood Count 7.68 K/ul (4.8-10.8)
[2023-05-18 08:58] LABS: Albumin Globulin Ratio 1.7 (0.9-2); Albumin Level 3.8 gm/dl (3.4-5.0); BUN Creatinine Ratio 17.1 (10-20); Bilirubin,Total 0.4 mg/dl (0.2-1.0); Calcium 8.9 mg/dl (8.6-10.3); Creatinine Clr Calc Pharmacy 78.9 ml/min; Est GFR (African American) 83.4 ml/min; Globulin 2.3 gm/dl (2.5-4.0); Magnesium 1.5 mg/dl (1.7-2.4); Potassium 3.9 mmol/L (3.5-5.1); Total Protein 6.1 gm/dl (6.0-8.3)
[2023-05-18] MEDS ORDERED: TRIAMTERENE/HCTZ 37.5/25MG TAB PO SCH (09:00)
--- NOTE | 2023-05-18 10:04 | Orthopedic Progress Note ---
Date of Service May 18, 2023 Subjective . Patient postoperative day 1 from right lateral cage placement at L4-5 with posterior percutaneous instrumentation, patient sitting up in chair, reports a distinct improvement of right leg numbness versus a preoperative symptoms. Limited incisional symptoms Motor intact, ambulating with minimal symptoms. Plan: Mobilize with physical and Occupational Therapy today, if she passes these activities, possible discharge tomorrow morning and if cleared by medicine. Review of Systems All systems reviewed & are unremarkable except as noted in HPI & below. Physical Exam . Results & Data Results & Data Laboratory Results . Diagnostic Findings . PG Care Time/CCT Total # of Minutes Spent Total Time Spent with Patient: Total time spent is greater than 50% in coordination of care (as documented) at patient's floor/unit and/or counseling patient: Coding Level of Care Code 94184 Post Operative Follow-Up Diagnoses
--- NOTE | 2023-05-18 10:04 | Post Operative Brief Note ---
PG Immediate Post Op with CF Date of Surgery May 18, 2023 Pre & Post Diagnosis Operation Date: 05/17/23 10:55 Pre-Op Diagnosis: Degenerative Spondylolisthesis Post-Op Diagnosis: Degenerative Spondylolisthesis I identified the patient and participated in the time-out.: Yes Procedure Operation Date: 05/17/23 10:55 Actual Procedures p Lateral Fusion Cage Placement with Posterior Fusion and Decompression at L4-L5 and Posterior Instrumention(Not Applicable) - Brian Stover MD Surgeon Brian Stover MD Acid Tester none Estimated Blood Loss 150 Findings Consistent with Post-Op Diagnosis Specimens Specimen Description: No specimen per surgeon Drains Nelson Catheter
[2023-05-18] MEDS: DOCUSATE SODIUM/SENNA 50/8.6MG TAB PO SCH (21:27)
[2023-05-19] MEDS: POLYETHYLENE (MIRALAX) 17 GM PACK PO SCH ×3 (00:33→12:38)
[2023-05-19] MEDS: CYCLOBENZAPRINE HCL 10 MG TAB PO SCH ×2 (05:59→13:35)
[2023-05-19] MEDS: oxyCODONE/ACETAMINOPHEN 5mg/325mg TAB PO PRN (09:32)
[2023-05-19] MEDS: INSULIN ASPART PER UNIT CHARGE SC SCH ×2 (09:32→12:36)
[2023-05-19] MEDS: LOSARTAN POTASSIUM 25 MG TAB PO SCH (09:35)
[2023-05-19] MEDS: PANTOprazole 40 MG TAB PO SCH (09:35)
[2023-05-19] MEDS: MAGNESIUM SULFATE / D5W 1 GM/100 ML BAG IV SCH ×2 (09:59→12:24)
--- NOTE | 2023-05-19 12:22 | Hospitalist Progress Note ---
Date of Service May 19, 2023 Assessment & Plan (1) Lumbar back pain with radiculopathy affecting left lower extremity: Plan: POD#1 - s/p Lateral Fusion Cage Placement with Posterior Fusion and Decompression at L4-L5 and Posterior Instrumention - Dr Stover Vitals, labs, etc acceptable (mag is low but being replaced) from medical standpoint can d/c home today (2) Morbid obesity: Plan: BMI 44 (3) DM2 (diabetes mellitus, type 2): Plan: recent Hba1c 5.9% she is on metformin 1gm BID can resume upon d/c creatinine stable (4) Mixed hyperlipidemia: Plan: cont statin cont fish oil (5) Benign essential hypertension: Plan: BPs well controlled cont HCTZ-triamterene mag supplementation (6) Anemia: Plan: pre-op Hb was 11.4 today - 10.7 recommend anemia w/u by PCP added this recommendation to her d/c instructions (7) Hypomagnesemia: Plan: mag level 1.5 s/p 2 grams mag sulfate IV x 1 then, mag oxide 400mg daily upon discharge 2nd to chronic HCTZ use +/- PPI usage mag oxide called in to pharmacy for her Plan from medical standpoint can d/c home today Admission and Anticipated Discharge Date Admission Date: May 17, 2023 Subjective patient with mild back pain but overall controlled radicular pain is much better passing flatus and did have stool today no dyspnea or SANTANA no chest pain no abd pain we discussed her mildly low magnesium and that it is likely due to HCTZ +/- PPI discussed mag oxide supplementation at home discussed mild anemia - she was anemic even before her surgery (Hb 11.4 pre-op) Review of Systems Review of Systems: cv - no chest pain, no orthopnea pulm - no cough GI - no nausea/emesis - no LUTS Physical Exam Physical Exam: gen - obese, NAD, looks good mouth - MMM neck - no JVD heart - RRR, s1 s2, no murmur lungs - CTA b/l abd - soft NT ND BS+ ext - no edema, pulses 2+ b/l psych - a/o x 3 Results & Data Results & Data Vital Signs (Past 12 Hours) Vital Signs Temp Pulse Resp BP Pulse Ox O2 Del Method 05/19/23 08:19 36.9 C 75 16 122/76 96 Room Air 05/19/23 06:05 91 Room Air Laboratory Results Labs 05/17/23 05/17/23 05/17/23 09:56 18:53 20:19 WBC RBC Hgb Hct MCV MCH MCHC RDW Std Deviation RDW Coeff of [place] Plt Count MPV Immature Gran % (Auto) Neut % (Auto) Lymph % (Auto) [place] % (Auto) Eos % (Auto) Baso % (Auto) Neut # (Auto) Lymph # (Auto) [place] # (Auto) Eos # (Auto) Baso # (Auto) Immature Gran # (Auto) Sodium Potassium Chloride Carbon Dioxide Anion Gap BUN Creatinine Est Cr Clr Drug Dosing Est GFR ( Amer) Est GFR (Non-Af Amer) BUN/Creatinine Ratio Glucose POC Glucose 124 H 158 H 169 H Calcium Magnesium Total Bilirubin AST ALT Alkaline Phosphatase Total Protein Albumin Globulin Albumin/Globulin Ratio 05/18/23 05/18/23 05/18/23 07:52 08:02 08:02 WBC 7.68 RBC 3.95 L Hgb 10.7 L Hct 33.1 L MCV 83.8 MCH 27.1 MCHC 32.3 RDW Std Deviation 43.4 RDW Coeff of [place] 14.3 Plt Count 176 MPV 11.9 Immature Gran % (Auto) 0.5 Neut % (Auto) 83.7 Lymph % (Auto) 8.5 [place] % (Auto) 7.2 Eos % (Auto) 0.0 Baso % (Auto) 0.1 Neut # (Auto) 6.43 Lymph # (Auto) 0.65 L [place] # (Auto) 0.55 Eos # (Auto) 0.00 Baso # (Auto) 0.01 Immature Gran # (Auto) 0.04 Sodium 139 Potassium 3.9 Chloride 103 Carbon Dioxide 30 Anion Gap 6 BUN 14 Creatinine 0.82 Est Cr Clr Drug Dosing 78.9 Est GFR ( Amer) 83.4 Est GFR (Non-Af Amer) 72.0 BUN/Creatinine Ratio 17.1 Glucose 135 H POC Glucose 130 H Calcium 8.9 Magnesium 1.5 L Total Bilirubin 0.4 AST 21 ALT 19 Alkaline Phosphatase 54 Total Protein 6.1 Albumin 3.8 Globulin 2.3 L Albumin/Globulin Ratio 1.7 05/18/23 05/18/23 05/18/23 11:56 16:29 20:21 WBC RBC Hgb Hct MCV MCH MCHC RDW Std Deviation RDW Coeff of [place] Plt Count MPV Immature Gran % (Auto) Neut % (Auto) Lymph % (Auto) [place] % (Auto) Eos % (Auto) Baso % (Auto) Neut # (Auto) Lymph # (Auto) [place] # (Auto) Eos # (Auto) Baso # (Auto) Immature Gran # (Auto) Sodium Potassium Chloride Carbon Dioxide Anion Gap BUN Creatinine Est Cr Clr Drug Dosing Est GFR ( Amer) Est GFR (Non-Af Amer) BUN/Creatinine Ratio Glucose POC Glucose 112 H 81 111 H Calcium Magnesium Total Bilirubin AST ALT Alkaline Phosphatase Total Protein Albumin Globulin Albumin/Globulin Ratio 05/19/23 05/19/23 07:46 11:25 WBC RBC Hgb Hct MCV MCH MCHC RDW Std Deviation RDW Coeff of [place] Plt Count MPV Immature Gran % (Auto) Neut % (Auto) Lymph % (Auto) [place] % (Auto) Eos % (Auto) Baso % (Auto) Neut # (Auto) Lymph # (Auto) [place] # (Auto) Eos # (Auto) Baso # (Auto) Immature Gran # (Auto) Sodium Potassium Chloride Carbon Dioxide Anion Gap BUN Creatinine Est Cr Clr Drug Dosing Est GFR ( Amer) Est GFR (Non-Af Amer) BUN/Creatinine Ratio Glucose POC Glucose 143 H 110 H Calcium Magnesium Total Bilirubin AST ALT Alkaline Phosphatase Total Protein Albumin Globulin Albumin/Globulin Ratio PG Care Time/CCT Total # of Minutes Spent Total Time Spent with Patient: Total time spent is greater than 50% in coordination of care (as documented) at patient's floor/unit and/or counseling patient: Coding Level of Care Code 04311 SUB INP/OBS CARE 2/35MIN Diagnoses Lumbar back pain with radiculopathy affecting left lower extremity M54.16 Morbid obesity E66.01 DM2 (diabetes mellitus, type 2) E11.9 Mixed hyperlipidemia E78.2 Benign essential hypertension I10 Anemia D64.9 Hypomagnesemia E83.42
--- NOTE | 2023-05-19 14:18 | Operative Report ---
PG Post Operative Report Pre & Post Diagnosis Operation Date: 05/17/23 10:55 Pre-Op Diagnosis: Degenerative Spondylolisthesis Post-Op Diagnosis: Degenerative Spondylolisthesis I identified the patient and participated in the time-out.: Yes Procedure Operation Date: 05/17/23 10:55 Actual Procedures p Lateral Fusion Cage Placement with Posterior Fusion and Decompression at L4-L5 and Posterior Instrumention(Not Applicable) - Brian Stover MD Surgeon Brian Stover MD Operations Expert none Estimated Blood Loss 150 Findings Consistent with Post-Op Diagnosis Specimens none Description of Procedure 1. L4-5 right lateral interbody arthrodesis 2. Insertion of intervertebral cage right L4-5, NuVasive Cohere 18 x 10 mm x 55 mm lordotic 3. L4-5 posterior nonsegmental instrumentation, NuVasive Reline. Patient was taken the operating room after adequate anesthesia was carefully positioned on the OR table, she was then repositioned in left lateral decubitus position right side up. Fluoroscopy was brought in and I used this to adjust the position overall on the table and she was secured in standard fashion for a lateral approach to the L4-5 level. Adjustments were then made to the table using fluoroscopy, and once set into position, the proposed incisional area was preprepped followed by prepping and draping. I began the procedure with a transverse incision over the right iliac crest where I carefully dissected down through subcutaneous tissues down into the fascial layer and into the retroperitoneal area. From here I was able to palpate the psoas and inserted the initial dilator from the NuVasive set, and then inserted this approximately in the midportion of the L4-5 disc space on the right side. After doing so, this was tested with monitoring and found to be in the proper position, from here I then inserted the guidewire using fluoroscopic control, followed by the additional dilators. The access apparatus was then attached to the access arm for fixation and after it was inserted over the initial dilators down to the L4- 5 region. I made additional adjustments to using fluoroscopy. The area to be addressed was inspected with the probe followed by then insertion of the gian in routine fashion. Once the access apparatus was set, I incised the lateral aspect of the disc followed by insertion of ailyn curettes and pituitaries to remove the disc material. Care was taken to do a thorough discectomy with removal of disc material and cartilage from the endplates. We continued this process until this was completed, and then we began with trials, ended up selecting the size cage as noted which also assisted with reduction of the spondylolisthesis. The fusion materials were then inserted into the disc space and then also within the cage itself and this cage was then tapped in position using fluoroscopic control. Once in position, final images were obtained followed by then removal of the access apparatus no issues were noted. From here I then repositioned the patient onto the Nuno top table in a prone position. After checking for positioning in all areas, a preprep was performed followed by bringing in fluoroscopy and marking for the approximate location of the incisions. Prep and drape was performed followed by then starting with percutaneous screw fixation incisions on the right and left side. Starting at L5 I then used a combination of the Jamshidi needles to insert into the pedicle on the left and then on the right at L5 using fluoroscopic control. Once these were inserted to the proper depth, I then removed the Jamshidi followed by insertion of the guidewire on the both the right and left sides. Guidewires were then held in retraction with a clamp, I then moved to the L4 level where I performed the identical procedure with insertion of the Jamshidi needles and insertion of guidewires. After these were inserted I then tapped both sets of guidewires along with measuring for the pedicle screws, 6.5 and millimeter pedicle screws were inserted 45 mm in length at L4 and a 50 mm in length at L5. We then measured for the rods, a 35 mm giorgi was inserted on the right and then secured after also sitting the giorgi slightly elevated for the L4 screw and then the L4 and fixation screws was then inserted with some additional force for reduction of the spondylolisthesis provided. On the left side, a 40 mm giorgi was inserted, and with this giorgi a similar effort at reduction of spinal stasis was in his performed along with some distraction for correction of the degenerative scoliosis. All setscrews were torqued down properly, and I then followed this with final images. The incision sites were then irrigated, vancomycin powder was placed followed by some 2-0 Vicryl suture followed by whitney for the skin, similar to the lateral incision. Sterile dressing was applied, the patient was taken recovery room/condition. I attest to the content of the Intraoperative Record and any orders documented therein. Any exceptions are noted below.
--- NOTE | 2023-05-24 11:04 | Discharge Summary ---
Date of Service May 24, 2023 Admission HPI (Per Admitting) Degenerative spondylolisthesis, lumbar stenosis Principal Diagnosis Same as "Discharge Diagnosis" noted below under Discharge Instructions. Discharge Exam . Discharge Data Consultations 05/17/23 20:23 Consult Hospitalist Routine Procedures Performed Operation Date: 05/17/23 10:55 Actual Procedures p Lateral Fusion Cage Placement with Posterior Fusion and Decompression at L4-L5 and Posterior Instrumention(Not Applicable) - Brian Stover MD Ordered Studies 05/17/23 [place] lumbar spine 2-3V Routine Hospital Course (1) Degenerative spondylolisthesis: Surgical procedure (2) Scoliosis of lumbar region due to degenerative disease of spine in adult: (3) Lumbar stenosis with neurogenic claudication: PG Care Time/CCT Total # of Minutes Spent Total Time Spent with Patient: Total time spent is greater than 50% in coordination of care (as documented) at patient's floor/unit and/or counseling patient: Discharge Plan Discharge Items Patient Disposition: Home - Self-Care Reason For Visit: SURGERY Discharge Diagnosis: Lumbar stenosis, degenerative spondylolisthesis Activity: As commented below Lifting: No more than 5 pounds Bathing: May shower/bathe in 3 days Driving/Machine Use: Resume 3 days after discharge Weightbearing: Full weightbearing Non-emergency contact: Surgeon Call non-emergency contact if: your symptoms worsen Follow-up/Referrals: Miley Ruiz MD [Primary Care Provider] - (please see Dr Ruiz in 1 week to have your CBC rechecked, magnesium level rechecked, etc.) Diet: Regular Addtl Attending Provider Instructions: May begin to shower on May 20, no bending lifting twisting in a repetitive fashion. Addtl Senior Clinical Research Associate Provider Instructions: Ms Aguiar, During your stay we noted 2 blood work abnormalities - 1. mildly low magnesium. This is likely due to your chronic use of hydrochlorothiazide which is a diuretic medicine. You received IV magnesium replacement while here. I would suggest a daily magnesium supplement. Will call to your pharmacy - magnesium oxide 400mg once daily. Please have your magnesium level rechecked in about 1 week. 2. you also have very mild anemia. Your hemoglobin after surgery was 10.7. Please have your family doctor check your iron levels, folic acid level, etc. 3. if you have constipation related to taking the oxycodone pain medication you can take 1 or both of the following [id number] medications - * miralax 1 serving daily in 8 ounces of fluid * senna 2 tablets once daily * the magnesium supplement sometimes can help move the bowels as well Best wishes for a speedy recovery, -Dr Perales - hospitalist team Pending Studies at Discharge: No Stand-Alone Forms: [facility], Smoking Cessation Medications and DC Order Prescriptions: New oxycodone-acetaminophen 5-325 mg tablet 1 tab PO Q6H Qty: 20 0RF magnesium oxide 400 mg magnesium tablet 400 mg PO DAILY Qty: 30 2RF Rx Instructions: start 05/20/23 Continued metformin 1,000 mg tablet 1,000 mg PO BID Qty: 180 1RF atorvastatin 20 mg tablet 20 mg PO HS Qty: 90 3RF losartan 25 mg tablet 25 mg PO QAM Qty: 90 1RF omeprazole 40 mg capsule,delayed release(DR/EC) 40 mg PO QAM Qty: 90 1RF triamterene-hydrochlorothiazid [Maxzide-25mg] 37.5-25 mg tablet 1 tab PO QAM Qty: 90 1RF cholecalciferol (vitamin D3) 25 mcg (1,000 unit) capsule 2,000 unit PO QAM tizanidine 4 mg tablet 4 mg PO BID PRN (Reason: muscle spasticity) Qty: 30 1RF multivitamin with minerals tablet 1 tab PO QAM omega-3 acid ethyl esters 1 gram capsule 2 cap PO QAM Patient Comments: 2000 mg a day amoxicillin 500 mg capsule 2,000 mg PO UD PRN (Reason: pre surgery/pre dental ) Rx Instructions: take 4 tabs PO 1 hour prior to procedure. cyanocobalamin (vitamin B-12) [Vitamin B-12] 1,000 mcg Tablet 1,000 mcg PO QAM aspirin [Ofelia Low Dose Aspirin] 81 mg Tablet,Delayed Release (Dr/Ec) 81 mg PO QAM Discontinued naproxen 500 mg tablet 500 mg PO BID PRN (Reason: pain) Qty: 180 1RF Hold Instructions: trying meloxicam Patient Comments: taking tylenol instead before surgery Discharge Orders: Discharge Order (Routine); Ordered 05/19/23 Ordered By: Brian Cartwright/Other Patient Handouts: Post-Op Tips: Back, After Back Surgery: Going Home Admission Data Admit Date/Time: 05/17/23 19:46 Attending Provider: Brian Stover Admit Provider: Brian Stover Primary Care Provider: Miley Ruiz Other Providers: Kush Cantu ; Erin Ferguson ; Delroy Perales ; Robert Croft ; Boris Acosta ; Chris Howe ; Jeremias Workman ; Corine Harvey ; Lacie Farnsworth ; Ramón Rodriguez ; Ying Hall ; Sherwin Argueta ; Halie Comer ; Jose Duarte ; Darryl Hawk ; Erin Ramos ; Yokasta Connolly ; Trevor Pond ; Delroy Medellin ; Titus Leung ; Susan Burnham ; Donna Link ; Adrian Gonzales ; Jennifer Zamudio ; Jean-Pierre Johnson ; Brandon Oshea ; Oliver Mcmahon ; Gene Livingston ; Anh Rizo ; Naomy Avila ; Robert Muñoz ; Boris Salazar Other Interventions: Discharge Summary Assessment (RN) Last Done: 05/19/23 14:25
== END 2023-05-19 15:25 | disposition home or self-care (01) | DRG 457 ==
LOC: ASU 09:24 → 3N 19:46